=== PATIENT | male | born 1975 | race Two or more races ===

== ENCOUNTER 2017-01-14 23:22 | Inpatient (IN) | payer OTHER ==
[2017-01-15 00:33] LABS: CH 31.9; CHCM 34.6; HCT 44.5 % (39.0-53.0); HDW 2.26; MCH 31.1 pg (25.0-35.0); MCHC 33.6 g/dL (31.0-37.0); MCV 92.5 fL (80.0-100.0); RBC 4.81 m/uL (4.30-5.90); RDW 14.1 % (11.5-15.5); WBC 15.4 k/uL (3.8-10.6)
--- NOTE | 2017-01-15 00:34 | XR ---
EXAM: XR Chest, 2 Views CLINICAL HISTORY: Reason: Chest Pain TECHNIQUE: Frontal and lateral views of the chest. COMPARISON: No relevant prior studies available. FINDINGS: Lungs: Suggestion of mild patchy retrocardiac infiltrate. Pleural space: Unremarkable. No pneumothorax. Heart: Unremarkable. Mediastinum: Unremarkable. Bones/joints: No acute fracture. IMPRESSION: Suggestion of mild patchy retrocardiac infiltrate.
[2017-01-15 00:45] LABS: ALT 34 U/L (21-72); AST 18 U/L (17-59); Alkaline Phosphatase 70 U/L (38-126); Anion Gap 9 mmol/L; Blood Urea Nitrogen 18 mg/dL (9-20); Calcium 9.5 mg/dL (8.4-10.2); Carbon Dioxide 25 mmol/L (22-30); Chloride 104 mmol/L (98-107); Glucose 98 mg/dL (74-99); Non-African American GFR(MDRD) >60 (>60 ml/min/1.73 sqM); Potassium 4.5 mmol/L (3.5-5.1); Sodium 138 mmol/L (137-145); Total Bilirubin 0.2 mg/dL (0.2-1.3); Total Protein 7.5 g/dL (6.3-8.2)
[2017-01-15 00:56] LABS: Add Differential Manual Differential
[2017-01-15 00:58] LABS: Nucleated Red Blood Cells 0 /100 WBC (0-0); Total Cells Counted 100
[2017-01-15 00:59] LABS: Manual Review Performed
[2017-01-15 01:07] LABS: Creatine Kinase MB 1.1 ng/mL (0.0-2.4)
[2017-01-15 01:16] LABS: Troponin I 0.269 ng/mL (0.000-0.034)
--- NOTE | 2017-01-15 01:21 | ED ---
General Adult HPI - General Chief complaint: Chest Pain Stated complaint: chest pain Time Seen by Provider: 01/14/17 23:43 Source: patient Mode of arrival: wheelchair Limitations: no limitations - Related Data Home Medications Medication Instructions Recorded Confirmed No Known Home Medications [No 01/14/17 01/14/17 Known Home Medications] Allergies Allergy/AdvReac Type Severity Reaction Status Date / Time No Known Allergies Allergy Verified 01/14/17 23:28 Review of Systems ROS Statement: Those systems with pertinent positive or pertinent negative responses have been documented in the HPI. ROS Other: All systems not noted in ROS Statement are negative. Past Medical History Past Medical History: Sleep Apnea/CPAP/BIPAP History of Any Multi-Drug Resistant Organisms: None Reported Past Surgical History: No Surgical Hx Reported Past Psychological History: No Psychological Hx Reported Smoking Status: Current every day smoker Past Alcohol Use History: None Reported Past Drug Use History: Marijuana General Exam Limitations: no limitations Course Vital Signs 01/14/17 23:25 Temperature 98.8 F Pulse Rate 89 Respiratory 20 Rate Blood Pressure 162/98 O2 Sat by Pulse 97 Oximetry EKG Findings - EKG Comments: EKG Findings:: EKG was done and reviewed at 2335 showing normal sinus rhythm with left atrial enlargement. And left ventricular hypertrophy with prolonged QT. The lateral ischemic changes noted. No old EKG available to compare to. The patient's ventricular rate 85 AR was 190 QRS 14 QT [address] Moody Medical Decision Making - Medical Decision Making Medical decision making; patient's white count is 15 hemoglobin 15 hematocrit 46. Temperature sent neutrophils. D-dimer 0.37. Potassium 4.5 with a BUN of 18 creatinine 1.0 with a GFR greater than 60. Glucose 98. Chest x-ray was done AP and lateral views and reviewed by radiologist his impression is suggestion of mild patchy retrocardiac infiltrate. As read by Dr. keita ultrasound of the arm was done to rule out DVT was negative. Lab resulted cardiac enzymes; CK 81 troponin 0.269. just prior to these results coming back the daughter stated that he passed out i.e. had a syncopal episode which he did not mention. He stated that was when the pain was at its worst but after he stood up again after passing out the pain had gone away. The patient is pain-free. I discussed the case with Dr. redman, on-call water pollution control inspector. The patient has been started on heparin. patient will have serial EKGs as needed plus cardiac enzymes. Patient be admitted to Dr. Leal. - Lab Data Result diagrams: 01/15/17 00:25 01/15/17 00:25 Lab Results 01/15/17 01/15/17 01/15/17 Range/Units 00:25 00:25 00:25 WBC 15.4 H (3.8-10.6) k/uL RBC 4.81 (4.30-5.90) m/uL Hgb 15.0 (13.0-17.5) gm/dL Hct 44.5 (39.0-53.0) % MCV 92.5 (80.0-100.0) fL MCH 31.1 (25.0-35.0) pg MCHC 33.6 (31.0-37.0) g/dL RDW 14.1 (11.5-15.5) % Plt Count 255 (150-450) k/uL Neutrophils % (Manual) 66 % Lymphocytes % (Manual) 18 % Monocytes % (Manual) 14 % Eosinophils % (Manual) 2 % Neutrophils # (Manual) 10.16 H (1.3-7.7) k/uL Lymphocytes # (Manual) 2.77 (1.0-4.8) k/uL Monocytes # (Manual) 2.16 H (0-1.0) k/uL Eosinophils # (Manual) 0.31 (0-0.7) k/uL Nucleated RBCs 0 (0-0) /100 WBC Manual Slide Review Performed D-Dimer (<0.60) mg/L FEU Sodium 138 (137-145) mmol/L Potassium 4.5 (3.5-5.1) mmol/L Chloride 104 (98-107) mmol/L Carbon Dioxide 25 (22-30) mmol/L Anion Gap 9 mmol/L BUN 18 (9-20) mg/dL Creatinine 1.00 (0.66-1.25) mg/dL Est GFR (MDRD) Af Amer >60 (>60 ml/min/1.73 sqM) Est GFR (MDRD) Non-Af >60 (>60 ml/min/1.73 sqM) Glucose 98 (74-99) mg/dL Calcium 9.5 (8.4-10.2) mg/dL Magnesium 2.0 (1.6-2.3) mg/dL Total Bilirubin 0.2 (0.2-1.3) mg/dL AST 18 (17-59) U/L ALT 34 (21-72) U/L Alkaline Phosphatase 70 (38-126) U/L Total Creatine Kinase 85 (55-170) U/L Total Protein 7.5 (6.3-8.2) g/dL Albumin 4.4 (3.5-5.0) g/dL 01/15/17 Range/Units 00:25 WBC (3.8-10.6) k/uL RBC (4.30-5.90) m/uL Hgb (13.0-17.5) gm/dL Hct (39.0-53.0) % MCV (80.0-100.0) fL MCH (25.0-35.0) pg MCHC (31.0-37.0) g/dL RDW (11.5-15.5) % Plt Count (150-450) k/uL Neutrophils % (Manual) % Lymphocytes % (Manual) % Monocytes % (Manual) % Eosinophils % (Manual) % Neutrophils # (Manual) (1.3-7.7) k/uL Lymphocytes # (Manual) (1.0-4.8) k/uL Monocytes # (Manual) (0-1.0) k/uL Eosinophils # (Manual) (0-0.7) k/uL Nucleated RBCs (0-0) /100 WBC Manual Slide Review D-Dimer 0.37 (<0.60) mg/L FEU Sodium (137-145) mmol/L Potassium (3.5-5.1) mmol/L Chloride (98-107) mmol/L Carbon Dioxide (22-30) mmol/L Anion Gap mmol/L BUN (9-20) mg/dL Creatinine (0.66-1.25) mg/dL Est GFR (MDRD) Af Amer (>60 ml/min/1.73 sqM) Est GFR (MDRD) Non-Af (>60 ml/min/1.73 sqM) Glucose (74-99) mg/dL Calcium (8.4-10.2) mg/dL Magnesium (1.6-2.3) mg/dL Total Bilirubin (0.2-1.3) mg/dL AST (17-59) U/L ALT (21-72) U/L Alkaline Phosphatase (38-126) U/L Total Creatine Kinase (55-170) U/L Total Protein (6.3-8.2) g/dL Albumin (3.5-5.0) g/dL Disposition Clinical Impression: Non-ST elevation VT (NSTEMI) Disposition: ADMITTED IP TO THIS HOSP Condition: Serious Referrals: Yaritza Andrade MD [Primary Care Provider] - 1-2 days
[2017-01-15] MEDS ORDERED: HEPARIN SODIUM,PORCINE 5,000 UNIT/ML 1 ML VIAL IV STA (01:23)
[2017-01-15] MEDS ORDERED: ASPIRIN 325 MG TAB PO STA ×2 (01:24→08:01)
[2017-01-15] MEDS ORDERED: HEPARIN SODIUM,PORCINE/D5W PMX 25,000 UNIT in DEXTROSE/WATER 1 500ML.BAG IV SCH (01:30)
--- NOTE | 2017-01-15 01:32 | US ---
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 COMPARISON: No relevant prior studies available. FINDINGS: Deep veins: Unremarkable. No DVT in the internal jugular, subclavian, axillary, or brachial veins. The veins are compressible with normal color flow and augmentation. Superficial veins: Unremarkable. No thrombus in the visualized basilic and cephalic veins. IMPRESSION: No DVT demonstrated.
[2017-01-15] MEDS ORDERED: LORazepam 2 MG/ML SYRINGE IV PRN (01:36)
[2017-01-15] MEDS ORDERED: MORPHINE SULFATE 4 MG/ML SYRINGE IV PRN (01:36)
[2017-01-15] MEDS ORDERED: NALOXONE 0.4 MG/ML 1 ML VIAL IV PRN (01:36)
[2017-01-15] MEDS ORDERED: ATORVASTATIN 80 MG TAB PO STA ×2 (01:43→08:01)
[2017-01-15] MEDS: NITROGLYCERIN OINT 1 INCH/GM PACKET TOPICAL SCH ×4 (01:50→19:07)
[2017-01-15] MEDS: SODIUM CHLORIDE 0.9% 1,000 ML IV SCH ×2 (01:52→14:10)
[2017-01-15 02:39] VITALS: BMI 38.4
[2017-01-15] MEDS ORDERED: NITROGLYCERIN SL TABS 0.4 MG TAB SUBLINGUAL PRN ×2 (08:01→10:49)
[2017-01-15] MEDS ORDERED: SODIUM CHLORIDE 0.9% 1,000 ML in EMPTY BAG 1 BAG IV ONE (08:01)
[2017-01-15] MEDS ORDERED: ALPRAZolam 0.25 MG TAB PO PRN (08:01)
[2017-01-15] MEDS ORDERED: ALPRAZolam 0.5 MG TAB PO PRN (08:01)
[2017-01-15 08:08] LABS: Creatine Kinase MB 1.7 ng/mL (0.0-2.4)
--- NOTE | 2017-01-15 08:09 | P.CRDCN ---
History of Present Illness Consult date: 01/15/17 Consult reason: chest pain History of present illness: 41-year-old gentleman with no significant past medical history comes to Hospital complaining of chest pain. He describes it as a precordial chest pressure moderate to severe intensity that radiated to his arms. It came on at rest and has subsided after he came to hospital. He is being treated as unstable angina EKG shows T-wave inversions in the anterolateral leads at the time of my evaluation his pain-free but is unhappy that he couldn't sleep tonight. Troponin is mildly elevated suggestive of non-ST segment elevation ND. Patient is a smoker. There is no history of hypertension diabetes and we don't have a cholesterol. Given his clinical presentation EKG findings and the abnormal blood tests I advised her to undergo advised him to undergo cardiac catheterization for further evaluation he has been explained of risk benefits and alternatives understood and accepted Review of Systems Constitutional: Denies chills. Denies fever. Eyes: Denies blurred vision. Denies pain. Ears, nose, mouth and throat: Denies headache. Denies sore throat. Cardiovascular:has chest pain. Denies shortness of breath. Respiratory: Denies cough. Gastrointestinal: Denies abdominal pain. Denies diarrhea. Denies nausea. Denies vomiting. Musculoskeletal: Denies myalgias. Integumentary: Denies pruritus. Denies rash. Neurological: Denies numbness. Denies weakness. Psychiatric: Denies anxiety. Denies depression. Endocrine: Denies fatigue. Denies weight change. Genitourinary: Denies burning, hematuria, frequency of urination. Hematological: No anemia or excess bleeding. Past Medical History Past Medical History: Sleep Apnea/CPAP/BIPAP History of Any Multi-Drug Resistant Organisms: None Reported Past Surgical History: No Surgical Hx Reported Past Psychological History: No Psychological Hx Reported Smoking Status: Current every day smoker Past Alcohol Use History: None Reported Past Drug Use History: Marijuana Medications and Allergies Home Medications Medication Instructions Recorded Confirmed Type No Known Home Medications [No 01/14/17 01/15/17 History Known Home Medications] Allergies Allergy/AdvReac Type Severity Reaction Status Date / Time No Known Allergies Allergy Verified 01/15/17 07:49 Physical Exam Vitals: Vital Signs Temp Pulse Pulse Resp BP BP Pulse Ox 01/15/17 03:59 97.7 F 71 16 154/87 95 01/15/17 01:59 97.7 F 77 16 139/89 97 01/15/17 01:56 98.4 F 77 18 161/87 96 01/15/17 01:36 97 01/14/17 23:25 98.8 F 89 20 162/98 97 Intake and Output 01/14/17 01/15/17 01/15/17 22:59 06:59 14:59 Intake Total 240 Output Total 450 Balance -210 Intake: IV 240 Sodium Chloride 0.9% 1, 240 000 ml @ 80 mls/hr IV . [id number] [facility] Rx#:[id number] Output: Urine 450 Other: Voiding Method Urinal Weight 117.934 kg General: The patient is awake and alert, in no distress, and does not appear acutely ill. Skin: Skin is warm and dry and no rashes or lesions are noted. Eye: Pupils are equal, round and reactive to light, extra-ocular movements are intact; there is normal conjunctiva bilaterally. Ears, nose, mouth and throat: There are moist mucous membranes and no oral lesions. Neck: The neck is supple, there is no tenderness or JVD. Cardiovascular: [ There is a regular rate and rhythm.][ No murmur, rub or gallop is appreciated.] Respiratory: Lungs are clear to auscultation, respirations are non-labored, breath sounds are equal. Gastrointestinal: Soft, non-distended, non-tender abdomen without masses or organomegaly noted. There is no rebound or guarding present. Bowel sounds are unremarkable. Back: There is no tenderness to palpation in the midline. There is no obvious deformity. Musculoskeletal: Normal ROM, no tenderness, There is no pedal edema. There is no calf tenderness or swelling. Extremities:[ No edema.] Vascular: [Femoral pulse is normal.][ Posterior tibial pulses are normal .][ Dorsalis pedis is palpable.] Neurological: CN II-XII intact. There are no obvious motor or sensory deficits. Speech is normal. Psychiatric: Cooperative, appropriate mood & affect, normal judgment. Results 01/15/17 00:25 01/15/17 00:25 Cardiac Enzymes 01/15/17 01/15/17 Range/Units 00:25 00:25 AST 18 (17-59) U/L CK-MB (CK-2) 1.1 (0.0-2.4) ng/mL Troponin I 0.269 H* (0.000-0.034) ng/mL Coagulation 01/15/17 Range/Units 06:52 APTT 30.1 H (22.0-30.0) sec CBC 01/15/17 Range/Units 00:25 WBC 15.4 H (3.8-10.6) k/uL RBC 4.81 (4.30-5.90) m/uL Hgb 15.0 (13.0-17.5) gm/dL Hct 44.5 (39.0-53.0) % Plt Count 255 (150-450) k/uL Comprehensive Metabolic Panel 01/15/17 Range/Units 00:25 Sodium 138 (137-145) mmol/L Potassium 4.5 (3.5-5.1) mmol/L Chloride 104 (98-107) mmol/L Carbon Dioxide 25 (22-30) mmol/L BUN 18 (9-20) mg/dL Creatinine 1.00 (0.66-1.25) mg/dL Glucose 98 (74-99) mg/dL Calcium 9.5 (8.4-10.2) mg/dL AST 18 (17-59) U/L ALT 34 (21-72) U/L Alkaline Phosphatase 70 (38-126) U/L Total Protein 7.5 (6.3-8.2) g/dL Albumin 4.4 (3.5-5.0) g/dL Current Medications Generic Name Dose Route Start Last Admin Trade Name Freq PRN Reason Stop Dose Admin Alprazolam 0.25 mg 01/15/17 08:01 Xanax PO Q6HR PRN Mild Anxiety Alprazolam 0.5 mg 01/15/17 08:01 Xanax PO Q6HR PRN Moderate Anxiety Aspirin 325 mg 01/15/17 09:00 Aspirin PO DAILY MARGIE Sodium Chloride 1,000 mls @ 80 mls/hr 01/15/17 01:45 01/15/17 01:52 Saline 0.9% IV 80 mls/hr .[id number] MARGIE Administration Lorazepam 0.5 mg 01/15/17 01:36 Ativan IV Q6HR PRN Anxiety Morphine Sulfate 4 mg 01/15/17 01:36 Morphine Sulfate (Inj) IV Q4HR PRN Severe Pain Naloxone HCl 0.2 mg 01/15/17 01:36 Narcan IV Q2M PRN Opioid Reversal Nitroglycerin 1 inch 01/15/17 01:45 01/15/17 06:40 Nitro-Bid Oint TOPICAL 1 inch Q6H MARGIE Administration Nitroglycerin 0.4 mg 01/15/17 08:01 Nitrostat SUBLINGUAL Q5M PRN Chest Pain Pantoprazole Sodium 40 mg 01/15/17 09:00 Protonix IV DAILY MARGIE Intake and Output 01/14/17 01/15/17 01/15/17 22:59 06:59 14:59 Intake Total 240 Output Total 450 Balance -210 Intake: IV 240 Sodium Chloride 0.9% 1, 240 000 ml @ 80 mls/hr IV . [id number] MARGIE Rx#:[id number] Output: Urine 450 Other: Voiding Method Urinal Weight 117.934 kg 01/15/17 00:25 01/15/17 00:25 EKG Interpretations (text) Normal sinus rhythm with anterolateral ST-T wave changes Assessment and Plan Plan: Acute non-ST segment elevation ND Patient will undergo cardiac catheterization today will review the echo results once they're available I will check lipid profile and treat them accordingly I advised him to quit smoking
[2017-01-15 08:13] LABS: Troponin I 0.487 ng/mL (0.000-0.034)
[2017-01-15] MEDS: ASPIRIN 325 MG TAB PO SCH ×2 (08:24→08:27)
[2017-01-15 09:00] LABS: Cholesterol 157 mg/dL (<200); HDL Cholesterol 36 mg/dL (40-60)
[2017-01-15] MEDS ORDERED: PANTOPRAZOLE 40 MG/10 ML VIAL IV SCH (09:00)
[2017-01-15] MEDS ORDERED: IV FLUID CONTINUATION 1,000 ML IV ONE (09:44)
[2017-01-15] MEDS ORDERED: MIDAZOLAM 2 MG/2 ML VIAL IV ONE (10:01)
[2017-01-15] MEDS ORDERED: fentaNYL (PF) 50 MCG/ML 2 ML AMP IV ONE (10:02)
[2017-01-15] MEDS ORDERED: BIVALIRUDIN BOLUS 250 MG/50 ML IV ONE (10:16)
[2017-01-15] MEDS ORDERED: BIVALIRUDIN 250 MG in SODIUM CHLORIDE 0.9% 50 ML IV ONE (10:17)
[2017-01-15] MEDS: NITROGLYCERIN 1000MCG/10ML SYRINGE INTRACORON ONE ×2 (10:30→10:34)
[2017-01-15] MEDS ORDERED: IOHEXOL 350 MG/ML 125ML BOTTLE INJ ONE (10:41)
[2017-01-15] MEDS ORDERED: TICAGRELOR 90 MG TAB PO ONE (10:41)
[2017-01-15] MEDS ORDERED: LIDOCAINE 2% INJ 20 MG/ML SQ ONE (10:44)
[2017-01-15] MEDS ORDERED: ZOLPIDEM 5 MG TAB PO PRN (10:49)
[2017-01-15] MEDS ORDERED: ATROPINE SULFATE 0.1 MG/ML 10ML SYRINGE IV PRN (10:49)
[2017-01-15] MEDS ORDERED: RX INFO: IV CONTRAST WAS GIVEN 1 EACH MISC MISCELLANE PRN (10:49)
[2017-01-15] MEDS ORDERED: MAG HYDROX/AL HYDROX/SIMETH 30 ML CUP PO PRN (10:49)
[2017-01-15] MEDS ORDERED: SODIUM CHLORIDE 0.9% 1,000 ML IV SCH (11:00)
--- NOTE | 2017-01-15 11:25 | ECHOF ---
Referral Reason:non-STEMI MEASUREMENTS -------- HEIGHT: 175.3 cm WEIGHT: 117.5 kg BP: 154/87 IVSd: 1.3 cm (0.6 - 1.1) LVIDd: 5.3 cm (3.9 - 5.3) LVPWd: 1.2 cm (0.6 - 1.1) IVSs: 1.6 cm LVIDs: 4.0 cm LVPWs: 1.7 cm LA Diam: 3.6 cm (2.7 - 3.8) Ao Diam: 2.9 cm (2.0 - 3.7) AV Cusp: 2.0 cm (1.5 - 2.6) LA Diam: 4.4 cm (2.7 - 3.8) MV EXCURSION: 20.304 mm (> 18.000) MV EF SLOPE: 83 mm/s (70 - 150) EPSS: 1.2 cm MV E Karsten: 0.65 m/s MV DecT: 271 ms MV A Karsten: 0.95 m/s MV E/A Ratio: 0.69 RAP: 5.00 mmHg RVSP: 15.50 mmHg FINDINGS -------- Sinus rhythm. This was a technically adequate study. The left ventricular size is normal. There is mild concentric left ventricular hypertrophy. Overall left ventricular systolic function is low-normal with, an EF between 50 - 55 %. The right ventricle is normal in size. The left atrial size is normal. The right atrial size is normal. The aortic valve is trileaflet, and appears structurally normal. No aortic stenosis or regurgitation. Mild mitral regurgitation is present. Mild tricuspid regurgitation present. There is no evidence of pulmonary hypertension. The right ventricular systolic pressure, as measured by Doppler, is 15.50mmHg. There is no pulmonic regurgitation present. The aortic root size is normal. There is no pericardial effusion. CONCLUSIONS -------- 1. The left ventricular size is normal. 2. The aortic root size is normal. 3. There is no pericardial effusion. 4. There is mild concentric left ventricular hypertrophy. 5. Overall left ventricular systolic function is low-normal with, an EF between 50 - 55 %. 6. The aortic valve is trileaflet, and appears structurally normal. No aortic stenosis or regurgitation. 7. Mild mitral regurgitation is present. 8. Mild tricuspid regurgitation present. 9. There is no evidence of pulmonary hypertension. 10. The right ventricular systolic pressure, as measured by Doppler, is 15.50mmHg. 11. There is no pulmonic regurgitation present. CORSAGE MAKER: Maritza Neri RDCS
[2017-01-15 13:40] LABS: Creatine Kinase MB 1.4 ng/mL (0.0-2.4)
[2017-01-15 13:43] LABS: Troponin I 0.513 ng/mL (0.000-0.034)
--- NOTE | 2017-01-15 14:45 | P.HPIM ---
History of Present Illness 41-year-old that came in with compensative chest pain the precordial area radiating to the left arm patient the had mildly elevated troponins admitted for non-ST elevation microinfarction patient also had T-wave inversion in the anterolateral leads patient subsequently underwent cardiac catheterization found to have significant stenosis in the left anterior descending patient underwent the stent placement to LAD. Patient is a smoker. Quit smoking from now. Patient is clinically doing well without any chest pain when I evaluated patient denied any shortness of breath denied any lightheadedness patient was diaphoretic with chest pain yesterday. Review of Systems REVIEW OF SYSTEMS: CONSTITUTIONAL: No fever, no malaise, no fatigue. HEENT: No recent visual problems or hearing problems. Denied any sore throat. CARDIOVASCULAR: No orthopnea, PND, no palpitations, no syncope. PULMONARY: No shortness of breath, no cough, no hemoptysis. GASTROINTESTINAL: No diarrhea, no nausea, no vomiting, no abdominal pain. Normoactive bowel sounds. NEUROLOGICAL: No headaches, no weakness, no numbness. HEMATOLOGICAL: Denies any bleeding or petechiae. GENITOURINARY: Denies any burning micturition, frequency, or urgency. MUSCULOSKELETAL/RHEUMATOLOGICAL: Denies any joint pain, swelling, or any muscle pain. ENDOCRINE: Denies any polyuria or polydipsia. The rest of the 14-point review of systems is negative. Past Medical History Past Medical History: Sleep Apnea/CPAP/BIPAP History of Any Multi-Drug Resistant Organisms: None Reported Past Surgical History: No Surgical Hx Reported Past Psychological History: No Psychological Hx Reported Smoking Status: Current every day smoker Past Alcohol Use History: None Reported Past Drug Use History: Marijuana Medications and Allergies Home Medications Medication Instructions Recorded Confirmed Type No Known Home Medications [No 01/14/17 01/15/17 History Known Home Medications] Allergies Allergy/AdvReac Type Severity Reaction Status Date / Time No Known Allergies Allergy Verified 01/15/17 07:49 Physical Exam Vitals: Vital Signs Temp Pulse Pulse Resp BP BP Pulse Ox 01/15/17 14:27 70 18 145/89 97 01/15/17 13:34 65 18 151/94 98 01/15/17 12:34 71 18 143/91 97 01/15/17 12:04 67 18 158/99 98 01/15/17 11:34 78 18 146/96 97 01/15/17 11:19 64 18 150/99 98 01/15/17 11:04 96.4 F L 74 18 144/96 97 01/15/17 08:00 97.3 F L 18 169/88 94 L 01/15/17 03:59 97.7 F 71 16 154/87 95 01/15/17 01:59 97.7 F 77 16 139/89 97 01/15/17 01:56 98.4 F 77 18 161/87 96 01/15/17 01:36 97 01/14/17 23:25 98.8 F 89 20 162/98 97 Intake and Output 01/14/17 01/15/17 01/15/17 22:59 06:59 14:59 Intake Total 240 1045 Output Total 450 350 Balance -210 695 Intake: IV 240 805 Sodium Chloride 0.9% 1, 240 540 000 ml @ 80 mls/hr IV . [id number] [facility] Rx#:[id number] Oral 240 Output: Urine 450 350 Other: Voiding Method Urinal Weight 117.934 kg PHYSICAL EXAMINATION: GENERAL: The patient is alert and oriented x3, not in any acute distress. Well developed, well nourished. HEENT: Pupils are round and equally reacting to light. EOMI. No scleral icterus. No conjunctival pallor. Normocephalic, atraumatic. No pharyngeal erythema. No thyromegaly. CARDIOVASCULAR: S1 and S2 present. No murmurs, rubs, or gallops. PULMONARY: Chest is clear to auscultation, no wheezing or crackles. ABDOMEN: Soft, nontender, nondistended, normoactive bowel sounds. No palpable organomegaly. MUSCULOSKELETAL: No joint swelling or deformity. EXTREMITIES: No cyanosis, clubbing, or pedal edema. NEUROLOGICAL: Gross neurological examination did not reveal any focal deficits. SKIN: No rashes. Results CBC & Chem 7: 01/15/17 00:25 01/15/17 00:25 Labs: Abnormal Lab Results - Last 24 Hours (Table) 01/15/17 01/15/17 01/15/17 Range/Units 00:25 00:25 06:52 WBC 15.4 H (3.8-10.6) k/uL Neutrophils # (Manual) 10.16 H (1.3-7.7) k/uL Monocytes # (Manual) 2.16 H (0-1.0) k/uL APTT (22.0-30.0) sec Troponin I 0.269 H* 0.487 H* (0.000-0.034) ng/mL LDL Cholesterol, Calc (0-99) mg/dL HDL Cholesterol (40-60) mg/dL 01/15/17 01/15/17 01/15/17 Range/Units 06:52 06:52 12:25 WBC (3.8-10.6) k/uL Neutrophils # (Manual) (1.3-7.7) k/uL Monocytes # (Manual) (0-1.0) k/uL APTT 30.1 H (22.0-30.0) sec Troponin I 0.513 H* (0.000-0.034) ng/mL LDL Cholesterol, Calc 100 H (0-99) mg/dL HDL Cholesterol 36 L (40-60) mg/dL Thrombosis Risk Factor Assmnt - Choose All That Apply Each Factor Represents 1 point: Age 41-60 years, Obesity (BMI >25) Other Risk Factors: No Thrombosis Risk Factor Assessment Total Risk Factor Score: 2 Thrombosis Risk Factor Assessment Level: Low Risk Assessment and Plan Plan: #1 acute non-ST elevation microinfarction: Involving the left anterior descending and patient is status post cardiac catheterization and stenting and patient is on dual antiplatelet therapy, statin and lisinopril at this time. #2 hypertension external #3 hyperlipidemia #4 obesity: Counseling was provided #5 nicotine abuse: Counseling was provided
--- NOTE | 2017-01-15 19:10 | CC ---
CARDIAC CATHETERIZATION REPORT INDICATION: Eay-ME-mzweyrd-elevation IA. PROCEDURE NOTE: After obtaining informed consent, left heart catheterization and coronary angiogram were performed via the right femoral artery using standard Suzanna catheters. The patient tolerated the procedure well without any obvious immediate complication. Patient received moderate conscious sedation. Total sedation time was 15 minutes. FINDINGS: 1. Hemodynamics. Left ventricular end-diastolic pressure is 18 mmHg. There is no significant gradient across the aortic valve. 2. Left ventriculogram. Left ventriculogram was not performed. 3. Angiographic data. a.Left main coronary artery. Left main coronary artery is a normal-sized vessel and is free of stenosis. It divides into left anterior descending coronary artery and circumflex coronary artery. Mid LAD shows a focal 95% stenosis. There are mild atherosclerotic changes within the circumflex coronary artery. b.Right coronary artery is a large dominant vessel. It shows mild cholesterol plaque. CONCLUSION: Stenosis of 95% involving mid LAD. PLAN: Patient will undergo angioplasty, stent placement of LAD. MMODL / IJN: [id number] /
--- NOTE | 2017-01-15 19:22 | PTCA ---
PERCUTANEOUSTRANS CORORONARY ANGIOGRAPHY DATE OF PROCEDURE: 01/15/2017 PERFORMING PHYSICIAN: Mack Man M.D., hog sawyer. PROCEDURE PERFORMED: Successful stenting of the mid left anterior descending artery using 3.0 x 15 mm Xience NOE with good angiographic results. INDICATION: This is a pleasant 41-year-old gentleman who presented to the hospital with chest discomfort and was diagnosed with acute non-STEMI. He was seen and evaluated by Dr. Ortiz, who performed a heart catheterization, and the patient was found to have critical disease involving the LAD. APPROACH: Right common femoral artery. COMPLICATIONS: None. LEVEL OF SEDATION: Moderate with a sedation length of 25 minutes. PROCEDURE DESCRIPTION: After diagnostic heart catheterization was performed by Dr. Ortiz and after reviewing the angiogram, we decided to proceed with intervention on the LAD. Anticoagulation was initiated using Angiomax. Subsequently I took JL4 guide and the left main was engaged. A Whisper wire was used to wire the LAD. Subsequently I ballooned the LAD using a 3.0 x 12 mm balloon, and subsequently I deployed a 3.0 x 15 mm Xience NOE where the stent was positioned under fluoroscopic guidance and deployed under 14 atmospheres for 20 seconds. The following angiogram showed good angiographic results. The procedure was completed without any complication. The groin was closed using the Perclose device. POST-PROCEDURE MANAGEMENT: 1. Dual anti-platelet therapy. 2. Risk factor modifications. 3. Follow up with the patient. RACHAEL / JAYNA: [id number] /
[2017-01-15] MEDS: TICAGRELOR 90 MG TAB PO SCH (20:18)
[2017-01-15] MEDS: METOPROLOL TARTRATE 25 MG TAB PO SCH (20:18)
[2017-01-15] MEDS ORDERED: ATORVASTATIN 80 MG TAB PO SCH (21:00)
[2017-01-16] MEDS: NITROGLYCERIN OINT 1 INCH/GM PACKET TOPICAL SCH ×3 (02:47→13:00)
[2017-01-16 06:38] LABS: Non-African American GFR(MDRD) >60 (>60 ml/min/1.73 sqM)
[2017-01-16] MEDS ORDERED: PANTOPRAZOLE 40 MG TABLET PO SCH (07:30)
[2017-01-16] MEDS: METOPROLOL TARTRATE 25 MG TAB PO SCH (08:31)
[2017-01-16] MEDS: TICAGRELOR 90 MG TAB PO SCH (08:32)
[2017-01-16 08:34] VITALS: PULSE 82
[2017-01-16] MEDS ORDERED: ASPIRIN 81 MG PO SCH (09:00)
[2017-01-16] MEDS ORDERED: LISINOPRIL 10 MG TAB PO SCH (09:00)
--- NOTE | 2017-01-16 11:42 | P.PN ---
Subjective Principal diagnosis: Non-STEMI This is a 41-year-old gentleman who presented to the hospital with a non-ST elevation myocardial infarction. He was taken to the cardiac catheterization lab yesterday by Dr. Ortiz and subsequently underwent angioplasty with stenting of the LAD by Dr. Hernadez. Patient was seen and examined this morning, denies any chest pain or difficulty in breathing. EKG from this morning shows normal sinus rhythm with no changes from post-PCI. Echocardiogram with Doppler study was performed which revealed an ejection fraction of 50-55%. Blood pressure 120/80 with a heart rate in the 80s. Objective - Vital Signs Vital signs: Vital Signs Temp 97.5 F L 01/16/17 08:33 Pulse 82 01/16/17 08:33 Resp 14 01/16/17 08:33 BP 150/97 01/16/17 08:33 Pulse Ox 97 01/16/17 08:33 Intake & Output 01/15/17 01/16/17 01/16/17 18:59 06:59 18:59 Intake Total 1285 200 Output Total 350 Balance 935 200 Weight 115.6 kg Intake: IV 805 Sodium Chloride 0.9% 1, 540 000 ml @ 80 mls/hr IV . [id number] MARGIE Rx#:[id number] Oral 480 200 Output: Urine 350 Other: Voiding Method Urinal Urinal # Voids 2 - Exam PHYSICAL EXAMINATION: HEENT: Head is atraumatic, normocephalic. Pupils equal, round. Neck is supple. There is no elevated jugular venous pressure. HEART EXAMINATION: Heart S1, S2 normal. No murmur or gallop heard. CHEST EXAMINATION: Lungs are clear to auscultation and precussion. No chest wall tenderness is noted on palpation or with deep breathing. ABDOMEN: Soft, nontender. Bowel sounds are heard. No organomegaly noted. Right groin soft, no evidence of any hematoma. EXTREMITIES: 2+ peripheral pulses with no evidence of peripheral edema and no calf tenderness noted. NEUROLOGIC patient is awake, alert and oriented -3. . - Labs CBC & Chem 7: 01/15/17 00:25 01/16/17 05:38 Labs: Abnormal Lab Results - Last 24 Hours (Table) 01/15/17 Range/Units 12:25 Troponin I 0.513 H* (0.000-0.034) ng/mL Assessment and Plan (1) Hyperlipemia Status: Acute (2) Marijuana smoker Status: Acute (3) Nicotine dependence Status: Acute (4) Non-ST elevation [place] (NSTEMI) Status: Acute Plan: From cardiology's perspective, patient may be able to be discharged home today. We will make him a follow-up appointment with Dr. Ortiz post discharge. Patient will be discharged home on aspirin 81 mg daily, Lipitor 80 mg daily, lisinopril 10 mg daily, metoprolol tartrate 25 mg one tablet by mouth twice a day, we will discontinue the Nitropaste. Brilinta 90 mg one tablet by mouth twice a day and sublingual nitroglycerin as needed for chest pain. Prescriptions for the above medications have been provided. DNP note has been reviewed, I agree with a documented findings and plan of care. Patient was seen and examined.
--- NOTE | 2017-01-16 12:05 | P.PN ---
Progress Note - Text This is an addendum to the progress note dictated earlier by cardiology. Patient does not have insurance coverage for Brilinta therefore he will go home with a free month supply. Once that is completed patient will take a one-time dose of 600 mg of Plavix, then start on Plavix 75 mg daily. He's been educated regarding this and prescriptions provided. DNP note has been reviewed, I agree with a documented findings and plan of care. Patient was seen and examined.
[2017-01-16 12:20] VITALS: BP 132/77; RESP 16; TEMP 97
--- NOTE | 2017-01-16 15:50 | P.DS ---
Providers Date of admission: 01/15/17 01:41 Attending physician: Marc Leal Consults: 01/15/17 01:36 Consult Physician Stat Consulting Provider: Zak Warren Consult Reason/Comments: non-STEMI Do you want consulting provider notified?: Already Contacted 01/15/17 10:49 Consult Physician Routine Consulting Provider: [facility] Consult Reason/Comments: Post Interventional patient Do you want consulting provider notified?: Already Contacted Primary care physician: Lupe Vigil [facility] Course: 41-year-old that came in with compensative chest pain the precordial area radiating to the left arm patient the had mildly elevated troponins admitted for non-ST elevation microinfarction patient also had T-wave inversion in the anterolateral leads patient subsequently underwent cardiac catheterization found to have significant stenosis in the left anterior descending patient underwent the stent placement to LAD. Patient is a smoker. Quit smoking from now. Patient is clinically doing well without any chest pain when I evaluated patient denied any shortness of breath denied any lightheadedness patient was diaphoretic with chest pain yesterday. 01/16/2017 next Patient is chest pain-free is clinically doing well will be discharged today to stable medical condition to home PHYSICAL EXAMINATION: GENERAL: The patient is alert and oriented x3, not in any acute distress. Well developed, well nourished. HEENT: Pupils are round and equally reacting to light. EOMI. No scleral icterus. No conjunctival pallor. Normocephalic, atraumatic. No pharyngeal erythema. No thyromegaly. CARDIOVASCULAR: S1 and S2 present. No murmurs, rubs, or gallops. PULMONARY: Chest is clear to auscultation, no wheezing or crackles. ABDOMEN: Soft, nontender, nondistended, normoactive bowel sounds. No palpable organomegaly. MUSCULOSKELETAL: No joint swelling or deformity. EXTREMITIES: No cyanosis, clubbing, or pedal edema. NEUROLOGICAL: Gross neurological examination did not reveal any focal deficits. SKIN: No rashes. #1 acute non-ST elevation myocardial infarction: Involving the left anterior descending and patient is status post cardiac catheterization and stenting and patient is on dual antiplatelet therapy, statin and lisinopril at this time. #2 hypertension external #3 hyperlipidemia #4 obesity: Counseling was provided #5 nicotine abuse: Counseling was provided Patient Condition at Discharge: Serious Plan - Discharge Summary New Discharge Prescriptions: New Aspirin 81 mg PO DAILY #30 Atorvastatin [Lipitor] 80 mg PO HS #30 tab Lisinopril [Zestril] 10 mg PO DAILY #30 tab Metoprolol Tartrate [Lopressor] 25 mg PO BID #60 tab Nitroglycerin Sl Tabs [Nitrostat] 0.4 mg SUBLINGUAL Q5M PRN #25 tab PRN Reason: Chest Pain Pantoprazole [Protonix] 40 mg PO AC-BRKFST #30 tab Ticagrelor [Brilinta] 90 mg PO BID #60 tab Discharge Medication List Aspirin 81 mg PO DAILY #30 01/16/17 [Rx] Atorvastatin [Lipitor] 80 mg PO HS #30 tab 01/16/17 [Rx] Lisinopril [Zestril] 10 mg PO DAILY #30 tab 01/16/17 [Rx] Metoprolol Tartrate [Lopressor] 25 mg PO BID #60 tab 01/16/17 [Rx] Nitroglycerin Sl Tabs [Nitrostat] 0.4 mg SUBLINGUAL Q5M PRN #25 tab 01/16/17 [Rx ] Pantoprazole [Protonix] 40 mg PO AC-BRKFST #30 tab 01/16/17 [Rx] Ticagrelor [Brilinta] 90 mg PO BID #60 tab 01/16/17 [Rx] Follow up Appointment(s)/Referral(s): Yaritza Andrade MD [Primary Care Provider] - 1-2 days Jr Ortiz MD [STAFF PHYSICIAN] - 1 Week (call the office for appointment on Wednesday) Patient Instructions/Handouts: *[facility] - After Heart Catheterization - Weed Cutter Instructions, How to Stop Smoking (DC), Cigarette Smoking and Your Health (GEN) Discharge Disposition: HOME SELF-CARE
== END 2017-01-16 14:26 | disposition home or self-care (01) | DRG 247 ==
LOC: EC 23:22 → 6SEL 01-15 01:41
PROVIDERS: ADMIT Internal Medicine; ATTEND Internal Medicine
PROC: B2151ZZ Fluoroscopy of Left Heart using Low Osmolar Contrast (ICD-10-PCS; 2017-01-15)
PROC: B2111ZZ Fluoroscopy of Multiple Coronary Arteries using Low Osmolar Contrast (ICD-10-PCS; 2017-01-15)
PROC: 027034Z Dilation of Coronary Artery, One Artery with Drug-eluting Intraluminal Device, Percutaneous Approach (ICD-10-PCS; principal; 2017-01-15 09:44)
PROC: 4A023N7 Measurement of Cardiac Sampling and Pressure, Left Heart, Percutaneous Approach (ICD-10-PCS; 2017-01-15 09:44)
DX: I21.4 Non-ST elevation (NSTEMI) myocardial infarction (principal); I11.9 Hypertensive heart disease without heart failure; R94.31 Abnormal electrocardiogram [ECG] [EKG]; I25.110 Atherosclerotic heart disease of native coronary artery with unstable angina pectoris; E78.5 Hyperlipidemia, unspecified; E66.9 Obesity, unspecified; G47.30 Sleep apnea, unspecified; F12.90 Cannabis use, unspecified, uncomplicated; F17.210 Nicotine dependence, cigarettes, uncomplicated; Z71.6 Tobacco abuse counseling; Z71.3 Dietary counseling and surveillance; Z86.79 Personal history of other diseases of the circulatory system
CPT/HCPCS: 36415; 71020; 80053; 80061; 82550; 82553; 82565; 83735; 84484; 85025; 85379; 85730; 93005; 93306; 93458; 96374; 99285

== ENCOUNTER 2018-02-08 22:51 | Emergency (ER) | payer OTHER ==
[2018-02-08] MEDS ORDERED: ASPIRIN 81 MG PO STA (23:15)
[2018-02-09 00:01] LABS: Basophils # (A) 0.1 k/uL (0-0.2); Basophils % (A) 1 %; Eosinophils # (A) 0.5 k/uL (0-0.7); Eosinophils % (A) 5 %; HCT 38.3 % (39.0-53.0); Lymphocytes # (A) 3.1 k/uL (1.0-4.8); Lymphocytes % (A) 30 %; MCH 31.5 pg (25.0-35.0); MCHC 33.8 g/dL (31.0-37.0); MCV 93.3 fL (80.0-100.0); Mean Platelet Volume 6.9; Monocytes # (A) 0.7 k/uL (0-1.0); Monocytes % (A) 7 %; Neutrophils # (A) 5.4 k/uL (1.3-7.7); Neutrophils % (A) 53 %; Platelet Count 255 k/uL (150-450); RBC 4.11 m/uL (4.30-5.90); RDW 12.9 % (11.5-15.5); WBC 10.3 k/uL (3.8-10.6)
--- NOTE | 2018-02-09 00:01 | XR ---
EXAMINATION TYPE: XR chest 2V DATE OF EXAM: 02/08/2018 COMPARISON: 01/15/2017 HISTORY: Chest pain TECHNIQUE: Frontal and lateral views of the chest are obtained. FINDINGS: Heart and mediastinum are normal. Lungs are clear. Diaphragm is normal. Bony thorax appear s normal. IMPRESSION: Normal chest. No change.
[2018-02-09 00:09] LABS: Partial Thromboplastin Time 24.1 sec (22.0-30.0); Prothrombin Time 9.5 sec (9.0-12.0)
[2018-02-09 00:11] LABS: ALT 25 U/L (21-72); AST 16 U/L (17-59); Albumin 3.9 g/dL (3.5-5.0); Alkaline Phosphatase 54 U/L (38-126); Anion Gap 7 mmol/L; Blood Urea Nitrogen 11 mg/dL (9-20); Carbon Dioxide 27 mmol/L (22-30); Chloride 104 mmol/L (98-107); Glucose 95 mg/dL (74-99); Potassium 3.9 mmol/L (3.5-5.1); Sodium 138 mmol/L (137-145); Total Bilirubin 0.3 mg/dL (0.2-1.3); Total Protein 6.8 g/dL (6.3-8.2)
[2018-02-09 00:12] LABS: Creatine Kinase 58 U/L (55-170)
[2018-02-09 00:26] LABS: Creatine Kinase MB 0.4 ng/mL (0.0-2.4); Troponin I <0.012 ng/mL (0.000-0.034)
--- NOTE | 2018-02-09 01:51 | ED ---
Chest Pain HPI - General Source: patient Mode of arrival: wheelchair Limitations: physical limitation <Marily Roman - Last Filed: 02/09/18 03:26> <Susan Clement - Last Filed: 02/09/18 06:15> - General Chief Complaint: Chest Pain Stated Complaint: Burning sensation in chest Time Seen by Provider: 02/08/18 23:06 - History of Present Illness Initial Comments: 42-year-old male patient with past medical history significant for myocardial infarction with stenting, presents to the emergency department today for evaluation of left upper chest pain and headache. Patient states he was working when he started having a burning pain to the left upper chest just below his left clavicle. Patient states he is also having a pounding headache behind his right eye. 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 Patient states that currently all symptoms have resolved. Patient states that he had a similar type pain however more severe when he had his heart attack so he became concerned and presented here for further evaluation. Patient denies any sweats , shortness of breath, or nausea with this. Denies any fevers or chills. Denies any cough or congestion. Patient denies any recent rash, fever, chills, abdominal pain, nausea, vomiting, diarrhea, constipation, back pain, numbness, tingling, dizziness, weakness, hematuria, dysuria, urinary urgency, urinary frequency, headache, visual changes, or any other complaints. Patient admits to current tobacco use. (Marily Roman) - Related Data Previous Rx's Medication Instructions Recorded Aspirin 81 mg PO DAILY #30 01/16/17 Atorvastatin [Lipitor] 80 mg PO HS #30 tab 01/16/17 Lisinopril [Zestril] 10 mg PO DAILY #30 tab 01/16/17 Metoprolol Tartrate [Lopressor] 25 mg PO BID #60 tab 01/16/17 Nitroglycerin Sl Tabs [Nitrostat] 0.4 mg SUBLINGUAL Q5M PRN #25 tab 01/16/17 Pantoprazole [Protonix] 40 mg PO AC-BRKFST #30 tab 01/16/17 Ticagrelor [Brilinta] 90 mg PO BID #60 tab 01/16/17 Allergies Allergy/AdvReac Type Severity Reaction Status Date / Time No Known Allergies Allergy Verified 02/08/18 23:21 Review of Systems ROS Other: All systems not noted in ROS Statement are negative. <Marily Roman - Last Filed: 02/09/18 03:26> ROS Other: All systems not noted in ROS Statement are negative. <ClementSusan P - Last Filed: 02/09/18 06:15> ROS Statement: Those systems with pertinent positive or pertinent negative responses have been documented in the HPI. EKG Findings - EKG Comments: EKG Findings:: EKG obtained at 2312 shows sinus rhythm with first-degree AV block, ventricular rate is 61, ID interval 210, QRS duration 94, QT 412, QTc 414. No evidence of ST elevation or depression. <Marily Roman - Last Filed: 02/09/18 03:26> Past Medical History Past Medical History: Myocardial Infarction ([place]), Sleep Apnea/CPAP/BIPAP History of Any Multi-Drug Resistant Organisms: None Reported Past Surgical History: Heart Catheterization With Stent Past Psychological History: No Psychological Hx Reported Smoking Status: Current every day smoker Past Alcohol Use History: Occasional Past Drug Use History: Marijuana <Marily Roman - Last Filed: 02/09/18 03:26> General Exam Limitations: physical limitation General appearance: alert, in no apparent distress, other (This is a well- developed, well-nourished adult male patient in no acute distress. Vital signs upon presentation are temperature 98.2F, pulse 56, respirations 18, blood pressure 168/86, pulse ox 98% on room air.) Eye exam: Present: normal appearance, PERRL, EOMI. Absent: scleral icterus, conjunctival injection, periorbital swelling ENT exam: Present: normal exam, normal oropharynx, mucous membranes moist Respiratory exam: Present: normal lung sounds bilaterally. Absent: respiratory distress, wheezes, rales, rhonchi, stridor, chest wall tenderness Cardiovascular Exam: Present: regular rate, normal rhythm, normal heart sounds. Absent: systolic murmur, diastolic murmur, rubs, gallop, clicks GI/Abdominal exam: Present: soft, normal bowel sounds. Absent: distended, tenderness, guarding, rebound, rigid Neurological exam: Present: alert, oriented X3, CN II-XII intact Psychiatric exam: Present: normal affect, normal mood Skin exam: Present: warm, dry, intact, normal color. Absent: rash <Marily Roman - Last Filed: 02/09/18 03:26> Vital Signs 02/08/18 02/09/18 23:00 02:13 Temperature 98.2 F 98.6 F Pulse Rate 56 L 66 Respiratory 18 16 Rate Blood Pressure 168/86 143/81 O2 Sat by Pulse 98 97 Oximetry Chest Pain MDM <Marily Roman - Last Filed: 02/09/18 03:26> <Susan Clement - Last Filed: 02/09/18 06:15> - [facility]: Two-view x-ray of the chest is obtained. Heart mediastinum are normal. Lungs are clear. Diaphragm is normal. Bony thorax appears normal. Impression by Dr. Walker shows normal chest with no change. MDM: 42-year-old male patient presents to the emergency department today for evaluation of burning discomfort to the left upper chest just believe the left clavicle. Patient is also beginning of headache. Symptoms had resolved upon patient's arrival. Labs reviewed and are unremarkable. Troponin was negative. Chest x-ray showed no acute cardiopulmonary process. Patient denies any shortness of breath, nausea, or sweats with this. Discuss results and findings with the patient. Did discuss this could be related to musculoskeletal injury due to the demanding physical nature of his job. Given patient's history I did offer to admit patient for observation and cardiology evaluation of the morning. Patient reported that he would rather be discharged home to follow-up outpatient. He is instructed to follow-up as soon as possible with his volumetric weigher and primary care physician. Return parameters discussed in detail. He verbalizes understanding and agreed with this plan. (Marily Roman) I was available for consultation in the emergency department. The history and physical exam were done by the midlevel provider. I was consulted for this patient's care. I reviewed the case with the midlevel provider and based on their presentation of the patient, I agree with the assessment, medical decision making and plan of care as documented. (Susan Clement) Disposition Is patient prescribed a controlled substance at d/c from ED?: No Time of Disposition: 01:51 <Marily Roman - Last Filed: 02/09/18 03:26> <Susan Clement P - Last Filed: 02/09/18 06:15> Clinical Impression: Atypical chest pain Disposition: HOME SELF-CARE Condition: Good Instructions: Chest Pain (ED) Additional Instructions: Follow-up with her volumetric weigher for recheck as soon as possible. Return here immediately for any new, worsening, or concerning symptoms. Referrals: Yaritza Andrade MD [Primary Care Provider] - 1-2 days
[2018-02-09 02:16] VITALS: BP 143/81; PULSE 66; RESP 16; TEMP 98.6
== END 2018-02-09 02:19 | disposition home or self-care (01) ==
LOC: EC 22:51
DX: R07.89 Other chest pain (principal); R51 Headache; I25.2 Old myocardial infarction; G47.30 Sleep apnea, unspecified; Z99.89 Dependence on other enabling machines and devices; Z95.5 Presence of coronary angioplasty implant and graft; F17.200 Nicotine dependence, unspecified, uncomplicated
CPT/HCPCS: 36415; 71046; 80053; 82550; 82553; 83735; 84484; 85025; 85610; 85730; 93005; 99285

== ENCOUNTER → 2018-02-17 | Outpatient (CLI) | payer OTHER ==
--- NOTE | 2018-02-18 10:19 | EST ---
EXERCISE STRESS DATE OF SERVICE: 02/17/2018 AGE: 42 SEX: Male HT: 69 WT: 250 PROTOCOL: Hi STAGE: IV DURATION OF EXERCISE: 9 minutes 32 seconds HEART RATE REST: 75 BLOOD PRESSURE REST: 126/68 MAXIMUM HEART RATE ACHIEVED: 141 MAXIMUM BLOOD PRESSURE: 167/60 85% MPHR: 151 100% MPHR: 178 METS: 11.1 INDICATIONS: Chest pain. CLINICAL INFORMATION: A 42-year-old male patient with history of chest pain. This is an exercise stress test. CLINICAL INFORMATION: Baseline heart rate 75 beats per minute. Baseline blood pressure 126/68 mmHg. Baseline 12-lead ECG shows sinus rhythm with normal ST segments. Patient exercised on a Hi protocol for 9 minutes 32 seconds achieving a peak heart rate of 141 beats per minute. Normal blood pressure response to exercise. There was no ECG evidence for ischemia. No arrhythmias other than occasional PACs noted. IMPRESSION: Good exercise capacity. Normal heart rate and blood pressure response to exercise without any evidence for ischemia. MMODL / IJN: [id number] /
== END | disposition home or self-care (01) ==
LOC: RADNMMAIN 09:20
PROVIDERS: ATTEND Internal Medicine
DX: R07.9 Chest pain, unspecified (principal)
CPT/HCPCS: 93017

== ENCOUNTER 2019-04-27 05:37 | Emergency (ER) | payer OTHER ==
[2019-04-27] MEDS ORDERED: SODIUM CHLORIDE 0.9% 1,000 ML IV STA (05:52)
--- NOTE | 2019-04-27 05:58 | ED ---
Abdominal Pain HPI - General Chief Complaint: Abdominal Pain Stated Complaint: URQ/Back Pain Source: patient, family Mode of arrival: ambulatory Limitations: no limitations - History of Present Illness Initial Comments: Michael is a 44-year-old male who presents the ER today for evaluation of right- sided abdominal pain. Patient reports that yesterday evening he began having right sided abdominal pain, he attempted to eat little portions of dinner but really had no appetite. Pain kept him up throughout the night and this morning which prompted him come the ER for evaluation. Patient reports associated nausea but no vomiting no change in bowel or bladder habits no history of kidney stones. Patient states that the pain seems to be directly and center on the right side, not up under his ribs not down in the pelvis not radiating to the flank. Pain is worse with palpation or movement. - Related Data Previous Rx's Medication Instructions Recorded Aspirin 81 mg PO DAILY #30 01/16/17 Atorvastatin [Lipitor] 80 mg PO HS #30 tab 01/16/17 Lisinopril [Zestril] 10 mg PO DAILY #30 tab 01/16/17 Metoprolol Tartrate [Lopressor] 25 mg PO BID #60 tab 01/16/17 Nitroglycerin Sl Tabs [Nitrostat] 0.4 mg SUBLINGUAL Q5M PRN #25 tab 01/16/17 Pantoprazole [Protonix] 40 mg PO AC-BRKFST #30 tab 01/16/17 Ticagrelor [Brilinta] 90 mg PO BID #60 tab 01/16/17 Allergies Allergy/AdvReac Type Severity Reaction Status Date / Time No Known Allergies Allergy Verified 04/27/19 05:47 Review of Systems ROS Statement: Those systems with pertinent positive or pertinent negative responses have been documented in the HPI. ROS Other: All systems not noted in ROS Statement are negative. Past Medical History Past Medical History: Myocardial Infarction ([place]), Sleep Apnea/CPAP/BIPAP History of Any Multi-Drug Resistant Organisms: None Reported Past Surgical History: Heart Catheterization With Stent Past Psychological History: No Psychological Hx Reported Smoking Status: Current every day smoker Past Alcohol Use History: Occasional Past Drug Use History: Marijuana General Exam - General Exam Comments Initial Comments: Physical Exam GENERAL: Patient is well-developed and well-nourished. Patient is nontoxic and well-hydrated Appears uncomfortable HENT: Normocephalic, Atraumatic. EYES: PERRL, EOMI PULMONARY: Unlabored respirations. CARDIOVASCULAR: RRR Warm and well perfused extremities ABDOMEN: Obese, soft Tenderness to palpation of the right lower quadrant as well as right upper quadrant Negative Fried sign SKIN: No rashes or bruising : Deferred NEUROLOGIC: Alert and oriented Normal speech Normal gait MUSCULOSKELETAL: Moving all extremities with no apparent injury PSYCHIATRIC: No SI/HI Limitations: no limitations Course Vital Signs 04/27/19 04/27/19 05:43 07:58 Temperature 98.1 F 98.7 F Pulse Rate 64 60 Respiratory 20 18 Rate Blood Pressure 177/99 146/101 O2 Sat by Pulse 98 95 Oximetry Medical Decision Making - Medical Decision Making Was seen and evaluated, history is obtained from patient at bedside this is a previously healthy 44-year-old woman presenting with somewhat diffuse abdominal pain and intermittent but seems to be worsening Physical exam relatively unremarkable patient has some mild tenderness to deep palpation in the abdomen Labs and CT imaging were obtained Labs were unremarkable no leukocytosis no transaminitissignificant abnormalities noted Computed tomography scan with no acute findings upon reevaluation patient's resting comfortably feels reassured there are no acute findings's comfortable with plan for discharge home, supportive care outpatient management and return parameters if anything gets worse. All questions pertaining care were answered return parameters were discussed patient was discharged home in stable condition - Lab Data Result diagrams: 04/27/19 06:04 04/27/19 06:04 Lab Results 04/27/19 04/27/19 04/27/19 Range/Units 06:04 06:04 06:04 WBC 9.3 (3.8-10.6) k/uL RBC 4.36 (4.30-5.90) m/uL Hgb 14.0 (13.0-17.5) gm/dL Hct 40.9 (39.0-53.0) % MCV 93.8 (80.0-100.0) fL MCH 32.2 (25.0-35.0) pg MCHC 34.3 (31.0-37.0) g/dL RDW 12.5 (11.5-15.5) % Plt Count 296 (150-450) k/uL Neutrophils % 61 % Lymphocytes % 24 % Monocytes % 7 % Eosinophils % 4 % Basophils % 1 % Neutrophils # 5.6 (1.3-7.7) k/uL Lymphocytes # 2.3 (1.0-4.8) k/uL Monocytes # 0.6 (0-1.0) k/uL Eosinophils # 0.3 (0-0.7) k/uL Basophils # 0.1 (0-0.2) k/uL Sodium 140 (137-145) mmol/L Potassium 4.2 (3.5-5.1) mmol/L Chloride 107 (98-107) mmol/L Carbon Dioxide 27 (22-30) mmol/L Anion Gap 6 mmol/L BUN 13 (9-20) mg/dL Creatinine 1.00 (0.66-1.25) mg/dL Est GFR (CKD-EPI)AfAm >90 (>60 ml/min/1.73 sqM) Est GFR (CKD-EPI)NonAf >90 (>60 ml/min/1.73 sqM) Glucose 111 H (74-99) mg/dL Calcium 9.1 (8.4-10.2) mg/dL Total Bilirubin 0.5 (0.2-1.3) mg/dL AST 25 (17-59) U/L ALT 23 (4-49) U/L Alkaline Phosphatase 66 (38-126) U/L Total Protein 7.2 (6.3-8.2) g/dL Albumin 4.0 (3.5-5.0) g/dL Lipase 40 (23-300) U/L Urine Color Light Yellow Urine Appearance Clear (Clear) Urine pH 5.5 (5.0-8.0) Ur Specific [place] 1.012 (1.001-1.035) Urine Protein Negative (Negative) Urine Glucose (UA) Negative (Negative) Urine Ketones Negative (Negative) Urine Blood Negative (Negative) Urine Nitrite Negative (Negative) Urine Bilirubin Negative (Negative) Urine Urobilinogen <2.0 (<2.0) mg/dL Ur Leukocyte Esterase Negative (Negative) Disposition Clinical Impression: Abdominal pain Disposition: HOME SELF-CARE Condition: Stable Instructions (If sedation given, give patient instructions): Abdominal Pain (ED) Is patient prescribed a controlled substance at d/c from ED?: No Referrals: Yaritza Andrade MD [Primary Care Provider] - 1-2 days
[2019-04-27 06:26] LABS: Basophils # (A) 0.1 k/uL (0-0.2); Basophils % (A) 1 %; Eosinophils # (A) 0.3 k/uL (0-0.7); Eosinophils % (A) 4 %; HCT 40.9 % (39.0-53.0); Lymphocytes # (A) 2.3 k/uL (1.0-4.8); Lymphocytes % (A) 24 %; MCH 32.2 pg (25.0-35.0); MCHC 34.3 g/dL (31.0-37.0); MCV 93.8 fL (80.0-100.0); Mean Platelet Volume 8.3; Monocytes # (A) 0.6 k/uL (0-1.0); Monocytes % (A) 7 %; Neutrophils # (A) 5.6 k/uL (1.3-7.7); Neutrophils % (A) 61 %; Platelet Count 296 k/uL (150-450); RBC 4.36 m/uL (4.30-5.90); RDW 12.5 % (11.5-15.5); WBC 9.3 k/uL (3.8-10.6)
[2019-04-27 06:29] LABS: Appearance,Urine Clear (Clear); Bilirubin,Urine Negative (Negative); Blood,Urine Negative (Negative); Color,Urine Light Yellow; Glucose,Urine (UA) Negative (Negative); Ketones,Urine Negative (Negative); Leukocyte Esterase,Urine Negative (Negative); Nitrite,Urine Negative (Negative); PH, Urine 5.5 (5.0-8.0); Protein,Urine Negative (Negative); Specific Gravity,Urine 1.012 (1.001-1.035); Urobilinogen,Urine <2.0 mg/dL (<2.0)
[2019-04-27 06:48] LABS: ALT 23 U/L (4-49); AST 25 U/L (17-59); African American GFR (CKD) >90 (>60 ml/min/1.73 sqM); Alkaline Phosphatase 66 U/L (38-126); Anion Gap 6 mmol/L; Blood Urea Nitrogen 13 mg/dL (9-20); Calcium 9.1 mg/dL (8.4-10.2); Carbon Dioxide 27 mmol/L (22-30); Chloride 107 mmol/L (98-107); Glucose 111 mg/dL (74-99); Non-African American GFR(CKD) >90 (>60 ml/min/1.73 sqM); Potassium 4.2 mmol/L (3.5-5.1); Sodium 140 mmol/L (137-145); Total Bilirubin 0.5 mg/dL (0.2-1.3); Total Protein 7.2 g/dL (6.3-8.2)
--- NOTE | 2019-04-27 07:08 | CT ---
EXAM: CT Abdomen and Pelvis With Intravenous Contrast CLINICAL HISTORY: ITS.REASON CT Reason: abdominal pain, RLQ TECHNIQUE: Axial computed tomography images of the abdomen and pelvis with intravenous contrast. CTDI is 19 mGy and DLP is 634 mGy-cm. This CT exam was performed using one or more of the following dose reduction techniques: automated exposure control, adjustment of the mA and/or kV according to patient size, and/or use of iterative reconstruction technique. COMPARISON: No relevant prior studies available. FINDINGS: Lung bases: No mass. No consolidation. ABDOMEN: Liver: Enlarged with mild steatosis. Gallbladder and bile ducts: Unremarkable. Pancreas: Unremarkable. Spleen: Unremarkable. Adrenals: Unremarkable. Kidneys and ureters: No hydronephrosis. Stomach and bowel: No bowel obstruction. No bowel wall thickening. PELVIS: Appendix: No evidence of appendicitis. Bladder: Mild wall thickening Reproductive: Unremarkable. ABDOMEN and PELVIS: Intraperitoneal space: Unremarkable. Bones/joints: No acute fractures. Soft tissues: Unremarkable. Vasculature: No abdominal aortic aneurysm. Lymph nodes: No enlarged lymph nodes. IMPRESSION: 1. No evidence of appendicitis. 2. Hepatomegaly with mild steatosis. 3. Mild bladder wall thickening, correlate with cystitis.
[2019-04-27 08:00] VITALS: BP 146/101; PULSE 60; RESP 18; TEMP 98.7
== END 2019-04-27 08:45 | disposition home or self-care (01) ==
LOC: EC 05:37
DX: R10.84 Generalized abdominal pain (principal); R11.0 Nausea; I25.2 Old myocardial infarction; G47.30 Sleep apnea, unspecified; F17.200 Nicotine dependence, unspecified, uncomplicated; Z95.5 Presence of coronary angioplasty implant and graft; Z99.89 Dependence on other enabling machines and devices
CPT/HCPCS: 36415; 80053; 83690; 85025; 81003; 74177; 99284; 96360; 96361; Q9967

== ENCOUNTER → 2019-05-19 | Outpatient (CLI) | payer OTHER ==
--- NOTE | 2019-05-19 13:01 | US ---
EXAMINATION TYPE: US abdomen complete DATE OF EXAM: 05/19/2019 COMPARISON: NONE CLINICAL HISTORY: R10.11 Right upper quadrant pain. EXAM MEASUREMENTS: Liver Length: 17.2 cm Gallbladder Wall: 0.2 cm CBD: 0.4 cm Spleen: 9.2 cm Right Kidney: 10.7 x 5.8 x 4.5 cm Left Kidney: 10.7 x 5.0 x 5.0 cm Morbidly obese patient, technically difficult and very limited study. Pancreas: partially obscured by bowel gas, portions visualized wnl Liver: Increased attenuation, decreased visualization of vessels suggestive of fatty infiltrate. Thi s limits evaluation for hepatic masses. Upper limits of normal in size Gallbladder: wnl Evidence for sonographic Fried's sign: no CBD: wnl Spleen: wnl Right Kidney: No hydronephrosis or masses seen Left Kidney: No hydronephrosis or masses seen, inferior pole obscured by bowel gas, limited views Upper IVC: wnl Abd Aorta: Bifurcation obscured by overlying bowel gas IMPRESSION: 1. Sonographic findings most commonly related to hepatic steatosis. Correlate with liver function emmy ts. 2. Limited exam secondary to overlying bowel gas with obscuration of the majority the pancreas, obscu ration the bifurcation of the abdominal aorta, and obscuration of the majority of the left kidney. 3. No sonographic evidence of cholelithiasis nor acute cholecystitis.
== END | disposition home or self-care (01) ==
LOC: RADUSMAIN 08:41
PROVIDERS: ATTEND Student in an Organized Health Care Education/Training Program
DX: K76.0 Fatty (change of) liver, not elsewhere classified (principal); R14.3 Flatulence
CPT/HCPCS: 76700

== ENCOUNTER 2019-05-25 22:58 | Observation (INO) | payer OTHER ==
[2019-05-25] MEDS ORDERED: ASPIRIN 81 MG PO STA (23:28)
[2019-05-25 23:46] LABS: Basophils # (A) 0.1 k/uL (0-0.2); Basophils % (A) 1 %; Eosinophils # (A) 0.5 k/uL (0-0.7); Eosinophils % (A) 4 %; HCT 41.3 % (39.0-53.0); HGB 13.6 gm/dL (13.0-17.5); Lymphocytes # (A) 3.2 k/uL (1.0-4.8); Lymphocytes % (A) 24 %; MCH 31.1 pg (25.0-35.0); MCHC 32.8 g/dL (31.0-37.0); MCV 94.7 fL (80.0-100.0); Mean Platelet Volume 8.2; Monocytes # (A) 0.8 k/uL (0-1.0); Monocytes % (A) 6 %; Neutrophils # (A) 8.4 k/uL (1.3-7.7); Neutrophils % (A) 62 %; Platelet Count 226 k/uL (150-450); RBC 4.36 m/uL (4.30-5.90); RDW 12.4 % (11.5-15.5); WBC 13.6 k/uL (3.8-10.6)
--- NOTE | 2019-05-25 23:48 | XR ---
EXAMINATION TYPE: XR chest 2V DATE OF EXAM: 05/25/2019 COMPARISON: 02/08/2018 HISTORY: Chest pain TECHNIQUE: FINDINGS: Heart and mediastinum are normal. Lungs are clear. Diaphragm is normal. Bony thorax appears normal. There are chest leads. IMPRESSION: Normal chest. No change.
[2019-05-25 23:56] LABS: INR 0.9 (<1.2); Partial Thromboplastin Time 23.8 sec (22.0-30.0); Prothrombin Time 9.4 sec (9.0-12.0)
[2019-05-25 23:57] LABS: ALT 22 U/L (4-49); AST 28 U/L (17-59); African American GFR (CKD) >90 (>60 ml/min/1.73 sqM); Albumin 3.9 g/dL (3.5-5.0); Alkaline Phosphatase 63 U/L (38-126); Anion Gap 7 mmol/L; Blood Urea Nitrogen 17 mg/dL (9-20); Calcium 8.9 mg/dL (8.4-10.2); Carbon Dioxide 24 mmol/L (22-30); Chloride 109 mmol/L (98-107); Glucose 95 mg/dL (74-99); Magnesium 1.8 mg/dL (1.6-2.3); Non-African American GFR(CKD) 85 (>60 ml/min/1.73 sqM); Sodium 140 mmol/L (137-145); Total Bilirubin 0.4 mg/dL (0.2-1.3)
[2019-05-26 00:05] LABS: Potassium 4.4 mmol/L (3.5-5.1)
--- NOTE | 2019-05-26 00:06 | ED ---
Chest Pain HPI - General Chief Complaint: Chest Pain Stated Complaint: chest pain Time Seen by Provider: 05/25/19 23:17 Source: patient Mode of arrival: wheelchair Limitations: no limitations - History of Present Illness Initial Comments: Patient is a 44-year-old male presenting to the emergency Department with complaints of left-sided chest pain that has been intermittent for the past few hours. Patient states he was sleeping and this pain woke him up. He describes it as stabbing in nature and is located on the left side of his chest near his armpit. Patient has history of cardiac cath [address] Ortiz. Patient has not had regular follow-ups, secondary to not having insurance. He states this pain is lasting a little from one to 5 minutes. Currently in the ER, he is having no pain, no nausea. He denies any recent fever, chills, abdominal pain, nausea, vomiting. He has no other complaints at this time. Upon arrival to the ER, his vital signs are stable. - Related Data Previous Rx's Medication Instructions Recorded Aspirin 81 mg PO DAILY #30 01/16/17 Atorvastatin [Lipitor] 80 mg PO HS #30 tab 01/16/17 Lisinopril [Zestril] 10 mg PO DAILY #30 tab 01/16/17 Metoprolol Tartrate [Lopressor] 25 mg PO BID #60 tab 01/16/17 Nitroglycerin Sl Tabs [Nitrostat] 0.4 mg SUBLINGUAL Q5M PRN #25 tab 01/16/17 Pantoprazole [Protonix] 40 mg PO AC-BRKFST #30 tab 01/16/17 Ticagrelor [Brilinta] 90 mg PO BID #60 tab 01/16/17 Allergies Allergy/AdvReac Type Severity Reaction Status Date / Time No Known Allergies Allergy Verified 05/25/19 23:02 Review of Systems ROS Statement: Those systems with pertinent positive or pertinent negative responses have been documented in the HPI. ROS Other: All systems not noted in ROS Statement are negative. EKG Findings - EKG Comments: EKG Findings:: Ventricular rate 78, WV interval to 12, QTC 4:30. Sinus rhythm with first-degree AV block, moderate criteria for LVH. No acute ST segment changes. Similar to previous EKG on 02/08/2018. Past Medical History Past Medical History: Myocardial Infarction ([place]), Sleep Apnea/CPAP/BIPAP History of Any Multi-Drug Resistant Organisms: None Reported Past Surgical History: Heart Catheterization With Stent Past Psychological History: No Psychological Hx Reported Smoking Status: Current every day smoker Past Alcohol Use History: Occasional Past Drug Use History: Marijuana General Exam - General Exam Comments Initial Comments: GENERAL: Well-appearing, well-nourished and in no acute distress. HEAD: Atraumatic, normocephalic. EYES: Pupils equal round and reactive to light, extraocular movements intact, sclera anicteric, conjunctiva are normal. ENT: TMs normal, nares patent, oropharynx clear without exudates. Moist mucous membranes. NECK: Normal range of motion, supple without lymphadenopathy or JVD. LUNGS: Breath sounds clear to auscultation bilaterally and equal. No wheezes rales or rhonchi. HEART: Regular rate and rhythm without murmurs, rubs or gallops. ABDOMEN: Soft, nontender, normoactive bowel sounds. No guarding, no rebound. No masses appreciated. : Deferred EXTREMITIES: Normal range of motion, no pitting or edema. No clubbing or cyanosis. NEUROLOGICAL: Normal speech, normal gait. PSYCH: Normal mood, normal affect. SKIN: Warm, Dry, normal turgor, no rashes or lesions noted. Limitations: no limitations Course Vital Signs 05/25/19 05/26/19 23:00 00:38 Temperature 98.4 F Pulse Rate 88 74 Respiratory 20 18 Rate Blood Pressure 159/82 145/96 O2 Sat by Pulse 98 96 Oximetry Chest Pain [facility] Patient is a 44-year-old male presenting with chest pain woke him up approximately 2 hours prior to arrival. Patient has history of heart cath [address] Ortiz. Vital signs are stable today. Patient does not currently have chest pain the ER. EKG shows no acute changes. Lab workup today is normal, troponin is normal. Chest x-ray shows no acute abnormalities. Discussed these findings with the patient. Patient will be admitted observation for serial troponins, cardiac consult. He is in agreement with this plan of care. Case discussed with Dr. Mesa. Disposition Clinical Impression: Chest pain Disposition: ADMITTED IP TO THIS HOSP Condition: Stable Is patient prescribed a controlled substance at d/c from ED?: No Referrals: Yaritza Andrade MD [Primary Care Provider] - 1-2 days Decision Date: 05/26/19 Decision Time: 00:41
[2019-05-26] MEDS ORDERED: NITROGLYCERIN SL TABS 0.4 MG TAB SUBLINGUAL PRN (00:38)
[2019-05-26 07:02] VITALS: RESP 18
[2019-05-26] MEDS ORDERED: LISINOPRIL 20 MG TAB PO SCH (09:00)
[2019-05-26] MEDS ORDERED: METOPROLOL TARTRATE 25 MG TAB PO SCH (09:00)
[2019-05-26 09:23] LABS: Cholesterol 116 mg/dL (<200); HDL Cholesterol 26 mg/dL (40-60); LDL Cholesterol,Calculated 61 mg/dL (0-99); Triglycerides 146 mg/dL (<150)
[2019-05-26 11:45] VITALS: BP 133/87; PULSE 70; TEMP 98.5
--- NOTE | 2019-05-26 12:14 | ECHOS ---
STRESS ECHOCARDIOGRAM INDICATIONS: Chest pain. BASELINE HEART RATE: 69 BASELINE BLOOD PRESSURE: 141/62 MAXIMUM HEART RATE: 126. MAXIMUM BLOOD PRESSURE: 188/90 85% MPHR: 150 100% MPHR: 176 METS: 10.3 MAXIMUM STAGE REACHED: 4 TOTAL EXERCISE TIME: 9:10 CLINICAL INFORMATION: Patient was exercised for a total period of 9 minutes. The peak heart rate of 126 was achieved, which is equivalent to 72% of the predicted heart rate. Maximum blood pressure of 188/90 mmHg was noted. Resting EKG shows normal sinus rhythm with normal LA interval and QRS duration and normal ST-T waves. No ST-segment depression suggestive of ischemia is noted. Occasional PVCs are noted. The baseline echocardiographic images reveals a normal left ventricular chamber size with normal left ventricular systolic function in the immediate postexercise period. Normal increase in the wall thickness and contractility was noted. Occasional PVCs are noted. FINAL IMPRESSION: 1. This stress echocardiographic study is negative for stress-induced ischemia, however, only 72% of the age predicted heart rate was achieved. 2. Patient's exercise tolerance is normal. 3. Occasional premature ventricular contractions were noted. MMODL / IJN: [id number] /
[2019-05-26] MEDS ORDERED: LISINOPRIL 20 MG TAB PO STA (12:50)
--- NOTE | 2019-05-26 12:53 | P.CRDCN ---
History of Present Illness History of present illness: HISTORY OF PRESENTING ILLNESS This is a pleasant 44-year-old male past medical history significant for coronary artery disease in the setting of an acute myocardial infarction status post PCI, hypertension, dyslipidemia, chronic shoulder pain and chronic nicotine dependence. He follows in the office with Dr. Ortiz. He has not been to the office in 2017. We have been asked to see in consultation for chest pain. States he woke up acutely last night with a sharp pain in the left shoulder that radiated down into the left precordial region at times associated with some numbness in the left arm and hand. There is no radiation to the back, neck or jaw. He denies any associated shortness of breath, dizziness, nausea, vomiting or palpitations. On arrival he was given aspirin and his symptoms slowly started to subside over the next hour or so. He is seen and examined re sting comfortably in bed in no acute distress. He has no further symptoms of chest discomfort. Cardiac catheterization performed in 2017 revealed a 95% stenosis of the mid LAD. He underwent successful stent placement at that time. He was maintained on dual antiplatelet therapy initially with Brilinta and then changed to Plavix. Currently he is taking aspirin and Plavix. DIAGNOSTICS EKG reveals sinus mechanism with first-degree AV block, no acute ST or T-wave abnormalities. Chest xray negative for an acute cardiopulmonary process. Laboratory reviewed, WBC 13.6, hemoglobin 13.6, platelets 226, sodium 140, potassium 4.4, creatinine 1.07, magnesium 1.8, cardiac enzymes negative 2, LDL 61. Current cardiac medications include aspirin 81 mg daily, Plavix 75 mg daily, atorvastatin 20 mg daily, lisinopril 20 mg daily and Lopressor 25 mg twice a day. Most recent echocardiogram obtained in the setting of a myocardial infarction in 2017 reveals preserved LV systolic function with ejection fraction 50-55%, mild MR and mild TR. Most recent stress test performed as an outpatient 2018 was negative for stress- induced ischemia. REVIEW OF SYSTEMS At the time of my exam: CONSTITUTIONAL: Denies fever or chills. CARDIOVASCULAR: Denies chest pain, shortness of breath, orthopnea, PND or palpitations. RESPIRATORY: Denies cough. GASTROINTESTINAL: Denies abdominal pain, diarrhea, constipation, nausea or vomiting. MUSCULOSKELETAL: Denies myalgias. NEUROLOGIC: Denies numbness, tingling or weakness. ENDOCRINE: Denies fatigue, weight change, polydipsia or polyurina. GENITOURINARY: Denies burning, hematuria or urgency with micturation. HEMATOLOGIC: Denies history of anemia or bleeding. PHYSICAL EXAMINATION Blood pressure 147/90 heart rate 63 afebrile and maintaining oxygen saturation on room air. CONSTITUTIONAL: No apparent distress. HEENT: Head is normocephalic. Pupils are equal, round. Sclerae anicteric. Mucous membranes of the mouth are moist. No JVD. No carotid bruit. CHEST EXAMINATION: Lungs are clear to auscultation. No chest wall tenderness is noted on palpation or with deep breathing. HEART EXAMINATION: Regular rate and rhythm. S1, S2 heard. No murmurs, gallops or rub. ABDOMEN: Soft, nontender. Positive bowel sounds. EXTREMITIES: 2+ peripheral pulses, no lower extremity edema and no calf tenderness. NEUROLOGIC EXAMINATION: Patient is awake, alert and oriented x3. ASSESSMENT Chest pain, atypical for angina. An acute coronary event has been ruled out. History of coronary artery disease status post PCI in the setting of an acute myocardial infarction Hypertension Dyslipidemia Chronic nicotine dependence Morbid obesity, BMI 41 PLAN An acute coronary event has been ruled out. Obtain 2-D echocardiogram and Doppler study to assess cardiac structure and function. Perform stress echocardiogram to assess for stress-induced cardiac ischemia. Increase lisinopril to 40 mg daily. Discontinue Plavix. Smoking cessation recommended. If stress test is normal he is stable for discharge from a cardiac perspective. Thank you kindly for this consultation. Nurse Practitioner note has been reviewed, I agree with a documented findings and plan of care. Patient was seen and examined. Past Medical History Past Medical History: Myocardial Infarction ([place]), Sleep Apnea/CPAP/BIPAP History of Any Multi-Drug Resistant Organisms: None Reported Past Surgical History: Heart Catheterization With Stent Past Psychological History: No Psychological Hx Reported Smoking Status: Current every day smoker Past Alcohol Use History: Occasional Past Drug Use History: Marijuana - Past Family History Mother Family Medical History: Diabetes Mellitus Father Family Medical History: No Reported History Additional Family Medical History / Comment(s): Father is healthy Medications and Allergies Home Medications Medication Instructions Recorded Confirmed Type Aspirin 81 mg PO DAILY #30 01/16/17 05/26/19 Rx Metoprolol Tartrate [Lopressor] 25 mg PO BID #60 tab 01/16/17 05/26/19 Rx Nitroglycerin Sl Tabs [Nitrostat] 0.4 mg SUBLINGUAL Q5M PRN #25 tab 01/16/17 05/26/19 Rx Pantoprazole [Protonix] 40 mg PO AC-BRKFST #30 tab 01/16/17 05/26/19 Rx Atorvastatin [Lipitor] 20 mg PO HS 05/26/19 05/26/19 History Clopidogrel [Plavix] 75 mg PO DAILY 05/26/19 05/26/19 History Diclofenac Sodium [Voltaren] 75 mg PO BID PRN 05/26/19 05/26/19 History Ibuprofen [Motrin] 800 mg PO Q8H PRN 05/26/19 05/26/19 History Lisinopril [Zestril] 20 mg PO DAILY 05/26/19 05/26/19 History tiZANidine [Zanaflex] 4 mg PO HS 05/26/19 05/26/19 History Allergies Allergy/AdvReac Type Severity Reaction Status Date / Time No Known Allergies Allergy Verified 05/26/19 06:55 Physical Exam Vitals: Vital Signs Temp Pulse Pulse Resp BP BP Pulse Ox 05/26/19 08:00 98.2 F 63 18 147/90 98 05/26/19 07:31 98.4 F 64 18 151/93 97 05/26/19 07:01 64 18 151/93 97 05/26/19 01:18 79 16 133/84 97 05/26/19 00:38 74 18 145/96 96 05/25/19 23:00 98.4 F 88 20 159/82 98 Intake and Output 05/25/19 05/26/19 05/26/19 22:59 06:59 14:59 Other: Weight 126.779 kg Results 05/25/19 23:35 05/25/19 23:35 Cardiac Enzymes 05/25/19 05/25/19 05/26/19 Range/Units 23:35 23:35 05:54 AST 28 (17-59) U/L Troponin I <0.012 <0.012 (0.000-0.034) ng/mL Coagulation 05/25/19 Range/Units 23:35 PT 9.4 (9.0-12.0) sec APTT 23.8 (22.0-30.0) sec CBC 05/25/19 Range/Units 23:35 WBC 13.6 H (3.8-10.6) k/uL RBC 4.36 (4.30-5.90) m/uL Hgb 13.6 (13.0-17.5) gm/dL Hct 41.3 (39.0-53.0) % Plt Count 226 (150-450) k/uL Comprehensive Metabolic Panel 05/25/19 Range/Units 23:35 Sodium 140 (137-145) mmol/L Potassium 4.4 (3.5-5.1) mmol/L Chloride 109 H (98-107) mmol/L Carbon Dioxide 24 (22-30) mmol/L BUN 17 (9-20) mg/dL Creatinine 1.07 (0.66-1.25) mg/dL Glucose 95 (74-99) mg/dL Calcium 8.9 (8.4-10.2) mg/dL AST 28 (17-59) U/L ALT 22 (4-49) U/L Alkaline Phosphatase 63 (38-126) U/L Total Protein 7.0 (6.3-8.2) g/dL Albumin 3.9 (3.5-5.0) g/dL Current Medications Generic Name Dose Route Start Last Admin Trade Name Freq PRN Reason Stop Dose Admin Aspirin 325 mg 05/27/19 09:00 Aspirin PO DAILY MARGIE Nitroglycerin 0.4 mg 05/26/19 00:38 Nitrostat SUBLINGUAL Q5M PRN Chest Pain Intake and Output 05/25/19 05/26/19 05/26/19 22:59 06:59 14:59 Other: Weight 126.779 kg 05/25/19 23:35 05/25/19 23:35
[2019-05-26] MEDS ORDERED: ATORVASTATIN 20 MG TAB PO SCH (21:00)
[2019-05-27] MEDS ORDERED: ASPIRIN 81 MG PO SCH (09:00)
[2019-05-27] MEDS ORDERED: LISINOPRIL 20 MG TAB PO SCH (09:00)
[2019-05-27] MEDS ORDERED: ASPIRIN 325 MG TAB PO SCH (09:00)
--- NOTE | 2019-05-28 13:59 | ECHOF ---
Referral Reason:cp MEASUREMENTS -------- HEIGHT: 175.3 cm WEIGHT: 126.6 kg BP: 147/90 IVSd: 1.4 cm (0.6 - 1.1) LVIDd: 5.6 cm (3.9 - 5.3) LVPWd: 1.1 cm (0.6 - 1.1) IVSs: 1.7 cm LVIDs: 3.3 cm LVPWs: 2.0 cm RVIDd: 3.3 cm (< 3.3) LAESV Index (A-L): 17.94 ml/m Ao Diam: 3.4 cm (2.0 - 3.7) LA Diam: 3.9 cm (2.7 - 3.8) AV Cusp: 2.1 cm (1.5 - 2.6) EPSS: 1.0 cm MV E Karsten: 1.26 m/s MV DecT: 294 ms MV A Karsten: 0.96 m/s MV E/A Ratio: 1.31 AV maxP.18 mmHg AV meanP.91 mmHg AR PHT: 217 ms RAP: 5.00 mmHg RVSP: 15.17 mmHg MV EF SLOPE: 67.89 mm/s (70 - 150) MV EXCURSION: 12.84 mm (> 18.000) FINDINGS -------- Sinus rhythm. This was a technically good study. The left ventricular size is normal. There is moderate concentric left ventricular hypertrophy. O verall left ventricular systolic function is normal with, an EF between 55 - 60 %. The right ventricle is mildly enlarged. The left atrial size is normal. The right atrial size is normal. Aortic valve is trileaflet and is mildly thickened. Trace amount of aortic regurgitation. Peak/m katia gradient across the Aortic Valve is 15.18mmHg / 8.91mmHg. The mitral valve is normal. The mitral valve leaflets are mildly thickened. Mild mitral regurgita tion is present. The tricuspid valve appears structurally normal. Mild tricuspid regurgitation present. Right vent ricular systolic pressure is normal at < 35 mmHg. There is no pulmonic regurgitation present. The aortic root size is normal. IVC Not well visulized. There is no pericardial effusion. CONCLUSIONS -------- 1. Sinus rhythm. 2. This was a technically good study. 3. The left ventricular size is normal. 4. There is moderate concentric left ventricular hypertrophy. 5. Overall left ventricular systolic function is normal with, an EF between 55 - 60 %. 6. The right ventricle is mildly enlarged. 7. The left atrial size is normal. 8. The right atrial size is normal. 9. Aortic valve is trileaflet and is mildly thickened. 10. Trace amount of aortic regurgitation. 11. Peak/mean gradient across the Aortic Valve is 15.18mmHg / 8.91mmHg. 12. The mitral valve is normal. 13. The mitral valve leaflets are mildly thickened. 14. Mild mitral regurgitation is present. 15. The tricuspid valve appears structurally normal. 16. Mild tricuspid regurgitation present. 17. Right ventricular systolic pressure is normal at < 35 mmHg. 18. There is no pulmonic regurgitation present. 19. The aortic root size is normal. 20. IVC Not well visulized. 21. There is no pericardial effusion. SPECIMEN TECHNICIAN: Kyra Meraz RDCS
--- NOTE | 2019-06-09 10:09 | P.HPIM ---
History of Present Illness H&P Date: 05/26/19 Chief Complaint: Chest pain 44-year-old male presenting to the emergency Department with complaints of left- sided chest pain that has been intermittent for the past few hours. Patient states he was sleeping and this pain woke him up. He describes it as stabbing in nature and is located on the left side of his chest near his armpit. Patient has history of cardiac cath [address] Ortiz. Patient has not had regular follow-ups, secondary to not having insurance. He states this pain is lasting a little from one to 5 minutes. EKG reveals sinus mechanism with first-degree AV block, no acute ST or T-wave abnormalities. Chest xray negative for an acute cardiopulmonary process. Laboratory reviewed, WBC 13.6, hemoglobin 13.6, platelets 226, sodium 140, potassium 4.4, creatinine 1.07, magnesium 1.8, cardiac enzymes negative 2, LDL 61. Review of Systems REVIEW OF SYSTEMS: CONSTITUTIONAL: No fever, no malaise, no fatigue. HEENT: No recent visual problems or hearing problems. Denied any sore throat. CARDIOVASCULAR: No chest pain, orthopnea, PND, no palpitations, no syncope. PULMONARY: No shortness of breath, no cough, no hemoptysis. GASTROINTESTINAL: No diarrhea, no nausea, no vomiting, no abdominal pain. NEUROLOGICAL: No headaches, no weakness, no numbness. HEMATOLOGICAL: Denies any bleeding or petechiae. GENITOURINARY: Denies any burning micturition, frequency, or urgency. MUSCULOSKELETAL/RHEUMATOLOGICAL: Denies any joint pain, swelling, or any muscle pain. ENDOCRINE: Denies any polyuria or polydipsia. The rest of the 14-point review of systems is negative. Past Medical History Past Medical History: Coronary Artery Disease (CAD), Hyperlipidemia, Hypertension, Myocardial Infarction ([place]), Sleep Apnea/CPAP/BIPAP Additional Past Medical History / Comment(s): JOE with Cpap, insomnia Last Myocardial Infarction Date:: 01/15/17 History of Any Multi-Drug Resistant Organisms: None Reported Past Surgical History: Heart Catheterization With Stent Past Anesthesia/Blood Transfusion Reactions: No Reported Reaction Additional Past Anesthesia/Blood Transfusion Reaction / Comment(s): Pt has never had general or spinal anesthesia. Date of Last Stent Placement:: 01/15/17 Smoking Status: Current every day smoker - Past Family History Mother Family Medical History: Diabetes Mellitus Father Family Medical History: No Reported History Additional Family Medical History / Comment(s): Father is healthy Medications and Allergies Home Medications Medication Instructions Recorded Confirmed Type Aspirin 81 mg PO DAILY #30 01/16/17 05/26/19 Rx Metoprolol Tartrate [Lopressor] 25 mg PO BID #60 tab 01/16/17 05/26/19 Rx Nitroglycerin Sl Tabs [Nitrostat] 0.4 mg SUBLINGUAL Q5M PRN #25 tab 01/16/17 05/26/19 Rx Pantoprazole [Protonix] 40 mg PO AC-BRKFST #30 tab 01/16/17 05/26/19 Rx Atorvastatin [Lipitor] 20 mg PO HS 05/26/19 05/26/19 History Diclofenac Sodium [Voltaren] 75 mg PO BID PRN 05/26/19 05/26/19 History Ibuprofen [Motrin] 800 mg PO Q8H PRN 05/26/19 05/26/19 History Lisinopril [Zestril] 40 mg PO DAILY #30 tab 05/26/19 Rx tiZANidine [Zanaflex] 4 mg PO HS 05/26/19 05/26/19 History Allergies Allergy/AdvReac Type Severity Reaction Status Date / Time No Known Allergies Allergy Verified 05/26/19 06:55 Physical Exam Vitals: Vital Signs Temp Pulse Pulse Resp BP BP Pulse Ox 05/26/19 08:00 98.2 F 63 18 147/90 98 05/26/19 07:31 98.4 F 64 18 151/93 97 05/26/19 07:01 64 18 151/93 97 05/26/19 01:18 79 16 133/84 97 05/26/19 00:38 74 18 145/96 96 05/25/19 23:00 98.4 F 88 20 159/82 98 Intake and Output 05/25/19 05/26/19 05/26/19 22:59 06:59 14:59 Other: Voiding Method Toilet Weight 126.779 kg 126.779 kg PHYSICAL EXAMINATION: GENERAL: The patient is alert and oriented x3, not in any acute distress. Well developed, well nourished. HEENT: Pupils are round and equally reacting to light. EOMI. No scleral icterus. No conjunctival pallor. Normocephalic, atraumatic. No pharyngeal erythema. No thyromegaly. CARDIOVASCULAR: S1 and S2 present. No murmurs, rubs, or gallops. PULMONARY: Chest is clear to auscultation, no wheezing or crackles. ABDOMEN: Soft, nontender, nondistended, normoactive bowel sounds. No palpable organomegaly. MUSCULOSKELETAL: No joint swelling or deformity. EXTREMITIES: No cyanosis, clubbing, or pedal edema. NEUROLOGICAL: Gross neurological examination did not reveal any focal deficits. SKIN: No rashes. Results CBC & Chem 7: 05/25/19 23:35 05/25/19 23:35 Labs: Abnormal Lab Results - Last 24 Hours (Table) 05/25/19 05/25/19 05/26/19 Range/Units 23:35 23:35 05:54 WBC 13.6 H (3.8-10.6) k/uL Neutrophils # 8.4 H (1.3-7.7) k/uL Chloride 109 H (98-107) mmol/L HDL Cholesterol 26 L (40-60) mg/dL Thrombosis Risk Factor Assmnt - Choose All That Apply Any of the Below Risk Factors Present?: Yes Each Factor Represents 1 point: Age 41-60 years, Obesity (BMI >25) Other Risk Factors: No Other congenital or acquired thrombophilia - If yes, enter type in comment: No Thrombosis Risk Factor Assessment Total Risk Factor Score: 2 Thrombosis Risk Factor Assessment Level: Low Risk Assessment and Plan Assessment: 1. Chest pain, atypical for angina. An acute coronary event has been ruled out. 2. History of coronary artery disease status post PCI in the setting of an acute myocardial infarction 3. Hypertension 4. Dyslipidemia 5. Chronic nicotine dependence 6. Morbid obesity, BMI 41 7. DVT prophylaxis; SCDs/subcu heparin CODE STATUS; full code PLAN An acute coronary event has been ruled out. Obtain 2-D echocardiogram and Doppler study to assess cardiac structure and function. Perform stress echocardiogram to assess for stress-induced cardiac ischemia. Increase lisinopril to 40 mg daily. Discontinue Plavix. Smoking cessation recommended. If stress test is normal he is stable for discharge from a cardiac perspective. Thank you kindly for this consultation.
--- NOTE | 2019-06-09 10:11 | P.DS ---
Providers Date of admission: 05/26/19 00:49 Expected date of discharge: 05/26/19 Attending physician: Marvin Arroyo MD Consults: 05/26/19 00:38 Consult Physician Urgent Consulting Provider: Bryce Berrios Consult Reason/Comments: chest pain Do you want consulting provider notified?: Yes, Notify in am Primary care physician: Lupe Hoskins [facility] Course: 44-year-old male past medical history significant for coronary artery disease in the setting of an acute myocardial infarction status post PCI, hypertension, dyslipidemia, chronic shoulder pain and chronic nicotine dependence. He follows in the office with Dr. Ortiz. He has not been to the office in 2017. We have been asked to see in consultation for chest pain. States he woke up acutely last night with a sharp pain in the left shoulder that radiated down into the left precordial region at times associated with some numbness in the left arm and hand. There is no radiation to the back, neck or jaw. He denies any associated shortness of breath, dizziness, nausea, vomiting or palpitations. On arrival he was given aspirin and his symptoms slowly started to subside over the next hour or so. He is seen and examined resting comfortably in bed in no acute distress. He has no further symptoms of chest discomfort. Cardiac catheterization performed in 2017 revealed a 95% stenosis of the mid LAD. He underwent successful stent placement at that time. He was maintained on dual antiplatelet therapy initially with Brilinta and then changed to Plavix. Currently he is taking aspirin and Plavix. Troponins remain negative; cardiology was consulted and patient was recommended to have 2-D echocardiogram with Doppler along with stress echocardiogram; lisinopril dose was increased to 40 mg daily; Plavix was discontinued and patient was recommended smoking cessation; cardiology cleared patient for discharge once stress test was negative; patient had a normal stress test and was sent home in a stable condition to follow-up with primary painting machine operator Patient Condition at Discharge: Stable Plan - Discharge Summary Discharge Rx Participant: No New Discharge Prescriptions: New Lisinopril [Zestril] 40 mg PO DAILY #30 tab Continue Aspirin 81 mg PO DAILY #30 Metoprolol Tartrate [Lopressor] 25 mg PO BID #60 tab Nitroglycerin Sl Tabs [Nitrostat] 0.4 mg SUBLINGUAL Q5M PRN #25 tab PRN Reason: Chest Pain Pantoprazole [Protonix] 40 mg PO AC-BRKFST #30 tab Ibuprofen [Motrin] 800 mg PO Q8H PRN PRN Reason: Pain Diclofenac Sodium [Voltaren] 75 mg PO BID PRN PRN Reason: Pain Atorvastatin [Lipitor] 20 mg PO HS tiZANidine [Zanaflex] 4 mg PO HS Discontinued Ticagrelor [Brilinta] 90 mg PO BID #60 tab Lisinopril [Zestril] 20 mg PO DAILY Clopidogrel [Plavix] 75 mg PO DAILY Discharge Medication List Aspirin 81 mg PO DAILY #30 01/16/17 [Rx] Metoprolol Tartrate [Lopressor] 25 mg PO BID #60 tab 01/16/17 [Rx] Nitroglycerin Sl Tabs [Nitrostat] 0.4 mg SUBLINGUAL Q5M PRN #25 tab 01/16/17 [Rx] Pantoprazole [Protonix] 40 mg PO AC-BRKFST #30 tab 01/16/17 [Rx] Atorvastatin [Lipitor] 20 mg PO HS 05/26/19 [History] Diclofenac Sodium [Voltaren] 75 mg PO BID PRN 05/26/19 [History] Ibuprofen [Motrin] 800 mg PO Q8H PRN 05/26/19 [History] Lisinopril [Zestril] 40 mg PO DAILY #30 tab 05/26/19 [Rx] tiZANidine [Zanaflex] 4 mg PO HS 05/26/19 [History] Follow up Appointment(s)/Referral(s): Yaritza Andrade MD [Primary Care Provider] - 1-2 days Jr Ortiz MD [STAFF PHYSICIAN] - 2 Weeks (office will call patient to make appointment ) Patient Instructions/Handouts: Chest Pain (DC) Discharge Disposition: HOME SELF-CARE
== END 2019-05-26 14:58 | disposition home or self-care (01) ==
LOC: EC 22:58 → 1SOBS 05-26 00:49
PROVIDERS: ADMIT Internal Medicine; ATTEND Internal Medicine
DX: R07.89 Other chest pain (principal); F17.200 Nicotine dependence, unspecified, uncomplicated; I25.10 Atherosclerotic heart disease of native coronary artery without angina pectoris; G89.29 Other chronic pain; M25.519 Pain in unspecified shoulder; I10 Essential (primary) hypertension; I25.2 Old myocardial infarction; E78.5 Hyperlipidemia, unspecified; G47.30 Sleep apnea, unspecified; Z98.61 Coronary angioplasty status; I44.0 Atrioventricular block, first degree; E66.01 Morbid (severe) obesity due to excess calories; Z68.41 Body mass index [BMI] 40.0-44.9, adult; Z79.899 Other long term (current) drug therapy; Z79.82 Long term (current) use of aspirin; Z79.02 Long term (current) use of antithrombotics/antiplatelets; Z83.3 Family history of diabetes mellitus
CPT/HCPCS: 99285; 36415; 93005; 93306; 80061; 80053; 83735; 84484 ×2; 85025; 85610; 85730; 71046; G0378; C8930; Q9950; 93351

== ENCOUNTER → 2020-07-16 | Outpatient (CLI) | payer OTHER ==
--- NOTE | 2020-07-16 14:28 | XR ---
EXAMINATION TYPE: XR knee limited LT DATE OF EXAM: 07/16/2020 COMPARISON: None HISTORY: Pain TECHNIQUE: 2 view left knee FINDINGS: There is narrowing of the medial lateral compartment joint spaces. No significant joint eff usion is evident. Medial and lateral tibial plateau spurring and medial femoral condylar spurring is noted. IMPRESSION: 1. Mild degenerative changes left knee
== END ==
LOC: RADXRMAIN 09:30
PROVIDERS: ATTEND Internal Medicine
DX: M17.12 Unilateral primary osteoarthritis, left knee (principal)

== ENCOUNTER → 2020-07-27 | Outpatient (CLI) | payer OTHER ==
--- NOTE | 2020-07-27 12:34 | MR ---
EXAMINATION TYPE: MR knee LT wo con DATE OF EXAM: 07/27/2020 COMPARISON: None HISTORY: Lt knee pain TECHNIQUE: Multiplanar, multisequence images of the knee is performed without IV contrast. FINDINGS: MEDIAL MENISCUS: Myxoid degeneration posterior horn medial meniscus without definite tear at this rick e. Similar appearance anterior horn medial meniscus. LATERAL MENISCUS: Tear posterior horn lateral meniscus with what appears to be a bucket-handle compon ent. CRUCIATE LIGAMENTS: The anterior and posterior cruciate ligaments are intact and unremarkable. COLLATERAL LIGAMENTS: The medial collateral ligament and lateral collateral ligament complex are inta ct and unremarkable. EXTENSOR MECHANISM: Visualized quadriceps and patellar tendons are intact. EFFUSION: No significant suprapatellar joint effusion. POPLITEAL CYST: Baby Zepeda's cyst measuring 1 cm. TRICOMPARTMENT SPACES: Moderate narrowing medial tibiofemoral joint space. Associated spur formation. CARTILAGE: Intact BONE MARROW SIGNAL: No focal abnormal marrow signal is appreciated. OTHER: No additional significant abnormality is appreciated. IMPRESSION: 1. Findings felt to reflect bucket-handle tear posterior horn lateral meniscus.
== END | disposition home or self-care (01) ==
LOC: RADMRIMAIN 07:31
PROVIDERS: ATTEND Internal Medicine
DX: S83.282A Other tear of lateral meniscus, current injury, left knee, initial encounter (principal)

== ENCOUNTER 2020-10-03 06:53 | Day surgery (SDC) | payer OTHER ==
[2020-10-01 12:35] VITALS: BMI 42.0
[~2020-10-03 06:53] MED LIST: DEXAMETHASONE SOD PHOSPHATE 4 MG/ML 1 ML VIAL IV ONE; LACTATED RINGERS 1,000 ML IV SCH; ONDANSETRON 4 MG/2 ML VIAL IVP ONE; Pre Op ABX Message 1 EACH MISC MISCELLANE ONE
[2020-10-03] MEDS ORDERED: HYDROmorphone 0.5 MG/0.5 ML SYRINGE IVP PRN (07:00)
[2020-10-03] MEDS ORDERED: LIDOCAINE 1% (10MG/ML) FOR IV START INTRADERMA ONE (07:33)
[2020-10-03] MEDS ORDERED: MIDAZOLAM 2 MG/2 ML VIAL ONE (08:01)
[2020-10-03] MEDS ORDERED: PROPOFOL 10 MG/ML 20 ML VIAL IV ONE (08:01)
[2020-10-03] MEDS ORDERED: SODIUM CHLORIDE 0.9% 100 ML BAG ONE (08:01)
[2020-10-03] MEDS ORDERED: ceFAZolin 1,000 MG VIAL ONE (08:01)
[2020-10-03] MEDS ORDERED: CHLOROPROCAINE 3% 30 MG/ML 20 ML VIAL ONE (08:01)
[2020-10-03] MEDS ORDERED: KETOROLAC 15 MG/ML 1 ML VIAL ONE (08:01)
[2020-10-03 09:07] VITALS: TEMP 96.9
[2020-10-03 09:15] VITALS: RESP 16
[2020-10-03] MEDS ORDERED: HYDROcodone/APAP 5-325MG 1 EACH TAB ONE (09:47)
[2020-10-03] MEDS ORDERED: HYDROcodone/APAP 5-325MG 1 EACH TAB PO ONE (09:50)
--- NOTE | 2020-10-03 10:05 | OP ---
OPERATIVE REPORT DATE OF PROCEDURE: 10/03/2020. PREOP DIAGNOSIS: Left knee lateral meniscus tear. POSTOP DIAGNOSIS: 1. Left knee lateral meniscus tear. 2. Left knee medial meniscus tear. 3. Left knee thickened infrapatellar medial shelf plica. PROCEDURE PERFORMED: 1. Left knee arthroscopic partial lateral meniscectomy. 2. Left knee arthroscopic partial medial meniscectomy. 3. Left knee arthroscopic lysis of adhesions. SURGEON: Zoran Fried MD. ANESTHESIA: General endotracheal. ESTIMATED BLOOD LOSS: Minimal. TOURNIQUET: None. DRAINS: None. COMPLICATIONS: None apparent. DISPOSITION: Postanesthesia care unit. INDICATIONS: Michael is a 45-year-old male who had a twisting injury to his left knee. Physical examination and MRI are consistent with tearing of the lateral meniscus. I had a long discussion with him in regard to treatment options. At this point, he does wish to proceed with operative intervention. Risks were explained to the patient which include, but are not limited to risk of infection, nerve damage, bleeding, pain, and a small risk of deep vein thrombosis which could lead to fatal pulmonary embolism. The patient understands these risks and wishes to proceed with surgical procedure. Examination under anesthesia, range of motion right: Full, left full. Effusion: Right none, left mild. Arielle's: Right normal with a good end point, left normal with good end point. Pivot shift: Right grade 0, left grade 0. Posterior drawer: Right with good endpoint, left with good end point. Varus laxity: Right none, left none. Valgus laxity: Right none, left none. External rotation: Right normal, left normal. External rotation: Right normal, left normal. ARTHROSCOPIC FINDINGS: Suprapatellar pouch was normal. Medial gutter thickened medial shelf plica. Lateral gutter was normal. Patella grade 1 change. Trochlea grade 2 change. Central aspect of the trochlea. Patellar tracking is normal. Medial femoral condyle. Diffuse grade 2 change medial tibial plateau, grade 1 change medial meniscus. Degenerative tear of the posterior horn of the medial meniscus through the white-white zone. Lateral femoral condyle, normal chondral surfaces lateral tibial plateau grade 1 change lateral meniscus complex tear, posterior horn, midbody, lateral meniscus, anterior cruciate ligament normal. Posterior cruciate ligament, normal. Infrapatellar notch thickened infrapatellar plica. DESCRIPTION OF THE PROCEDURE: The patient identified in preoperative holding. The surgical site was marked by both the patient and myself. He was given 2 grams of Ancef IV for prophylactic purposes. He was then transferred to the operative suite. He was placed supine on the operative table. General anesthetic was then administered and dosed per the anesthesia department without apparent complication. Examination under anesthesia was then performed of both knees. The findings are noted above. The tourniquet was not placed. The patient's left lower extremity than prepped and draped in usual sterile fashion. Standard surgical pause undertaken to ensure that we were operating on the correct site and that appropriate preoperative antibiotics were given. All staff in the room were in agreement we proceeded. The knee was then insufflated 120 mL with sterile saline solution. This was done to gradually distend the joint. A standard inferolateral portal was then made. A 30- degree arthroscope was introduced into the suprapatellar pouch. The arthroscopic pump pressure was set to 60 mmHg and maintained at that level throughout the entire case. Next utilizing an 18-gauge spinal needle to topically localize the placement, the inferomedial port was made under direct visualization. Standard diagnostic arthroscopy of the knee was then performed. The findings are noted above. Attention first drawn to the infrapatellar notch. Very thickened infrapatellar and medial shelf plica. This was released with a biter and debrided back to stable tissue utilizing the synovial shaver. Hemostasis was achieved with the ArthroCare wand. Attention drawn to the lateral compartment. Degenerative macerated tear of the posterior horn and midbody of the lateral meniscus. This was through the white-white zone. This tear was deemed irreparable. This tear was then debrided with a combination of biters and a synovial shaver back to stable tissue. Approximately 75% of the posterior horn midbody lateral meniscus remained intact after debridement. The anterior and posterior root attachments were carefully inspected and found to be intact. Attention was drawn to the medial compartment. He had a degenerative tear through the white-white zone of the posterior horn of the medial meniscus. This tear was also deemed irreparable. The meniscus tear was then debrided with a combination of biters and a shaver back to stable tissue. Approximately 75% of the posterior horn of the medial meniscus remained intact after debridement. The anterior and posterior root attachments were carefully inspected and found to be intact. At this point time, no further work was deemed necessary. The knee was thoroughly irrigated and drained with an outflow cannula. The arthroscopic equipment was removed from the knee. The arthroscopic portals were then closed with 3-0 nylon interrupted suture. Sterile compressive dressing was then applied. All sponge and needle counts were deemed correct prior to closure. The patient tolerated the procedure without apparent complication. He was transferred to recovery room in stable condition. [employer] / BRANTN: [id number] /
[2020-10-03 10:08] VITALS: BP 143/83; PULSE 50
== END 2020-10-03 11:15 | disposition home or self-care (01) ==
LOC: OR 06:53
PROVIDERS: ATTEND Orthopaedic Surgery Sports Medicine
DX: S83.282A Other tear of lateral meniscus, current injury, left knee, initial encounter (principal); S83.242A Other tear of medial meniscus, current injury, left knee, initial encounter; X50.1XXA Overexertion from prolonged static or awkward postures, initial encounter; M67.52 Plica syndrome, left knee; I10 Essential (primary) hypertension; K21.9 Gastro-esophageal reflux disease without esophagitis; Z95.5 Presence of coronary angioplasty implant and graft; Z97.3 Presence of spectacles and contact lenses; Z98.890 Other specified postprocedural states; F17.210 Nicotine dependence, cigarettes, uncomplicated; Z83.3 Family history of diabetes mellitus; Z79.01 Long term (current) use of anticoagulants; Z79.82 Long term (current) use of aspirin; Z79.899 Other long term (current) drug therapy; I25.10 Atherosclerotic heart disease of native coronary artery without angina pectoris
CPT/HCPCS: 29880; J2400; J2250; J1100; J2405; J0690; J1885; J2704

== ENCOUNTER 2021-12-09 08:19 | Emergency (ER) | payer OTHER ==
[2021-12-09 08:23] VITALS: BP 149/85; PULSE 62; RESP 16; TEMP 98.1
[2021-12-09 08:59] LABS: Appearance,Urine Clear (Clear); Bilirubin,Urine Negative (Negative); Blood,Urine Negative (Negative); Color,Urine Yellow; Glucose,Urine (UA) Negative (Negative); Ketones,Urine Negative (Negative); Leukocyte Esterase,Urine Negative (Negative); Nitrite,Urine Negative (Negative); PH, Urine 5.5 (5.0-8.0); Protein,Urine Trace (Negative); Urobilinogen,Urine <2.0 mg/dL (<2.0)
[2021-12-09] MEDS ORDERED: CYCLOBENZAPRINE 10 MG TAB PO STA (09:03)
[2021-12-09] MEDS ORDERED: KETOROLAC 15 MG/ML 1 ML VIAL IVP STA (09:03)
[2021-12-09] MEDS ORDERED: KETOROLAC 15 MG/ML 1 ML VIAL IM STA (09:23)
--- NOTE | 2021-12-09 09:24 | XR ---
EXAMINATION TYPE: XR ribs RT w pa chest xray DATE OF EXAM: 12/09/2021 COMPARISON: NONE HISTORY: Pain TECHNIQUE: Single view of the chest 5 views of the ribs are submitted. FINDINGS: The lungs are clear. No Evidence for pneumothorax. No evidence for focal contusion. Medi astinal structures are midline. Evaluation of the ribs fails to demonstrate evidence for displaced r ib fracture or secondary sign of rib fracture. IMPRESSION: Negative study
--- NOTE | 2021-12-09 10:17 | ED ---
Back Pain HPI - General Chief Complaint: Back Pain/Injury Stated Complaint: back pain Time Seen by Provider: 12/09/21 08:30 Source: patient Limitations: no limitations - History of Present Illness Initial Comments: 6-year-old male presents to the emergency Department with right-sided back pain. States that it is paraspinal, tender to the touch without radiation. Pain is worse with movement and better with rest. He took some Motrin at home without improvement in his symptoms. Denies any injuries. No recent new physical activity. Denies history of chronic back pain. States that his pain has now affected's work and therefore he came in for evaluation. 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 He denies fevers. He admits to shortness of breath when the pain is present however is relieved the pain goes away. He does not have a primary care physician area and denies any changes in his bowel or bladder habits. No weakness in his legs. Pain does not radiate into the legs. No other alleviating, precipitating or modifying factors - Related Data Home Medications Medication Instructions Recorded Confirmed Atorvastatin [Lipitor] 20 mg PO HS 05/26/19 10/03/20 Ibuprofen [Motrin] 800 mg PO Q8H PRN 05/26/19 10/03/20 tiZANidine [Zanaflex] 4 mg PO HS PRN 05/26/19 10/03/20 Losartan Potassium [Cozaar] 100 mg PO DAILY 09/16/20 10/03/20 Pantoprazole [Protonix] 40 mg PO HS 09/16/20 10/03/20 Aspirin 81 mg PO DAILY 10/01/20 10/03/20 Metoprolol Tartrate [Lopressor] 50 mg PO BID 10/01/20 10/03/20 Previous Rx's Medication Instructions Recorded Nitroglycerin Sl Tabs [Nitrostat] 0.4 mg SUBLINGUAL Q5M PRN #25 tab 01/16/17 HYDROcodone/APAP 5-325MG [Immaculata 1 tab PO Q4HR PRN #18 tab 10/03/20 5-325] Cyclobenzaprine [Flexeril] 10 mg PO TID PRN #25 tab 12/09/21 Ibuprofen [Motrin] 600 mg PO Q8HR PRN #30 tab 12/09/21 Lidocaine 5% Patch [Lidoderm] 1 patch TOPICAL DAILY #25 patch 12/09/21 Allergies Allergy/AdvReac Type Severity Reaction Status Date / Time No Known Allergies Allergy Verified 12/09/21 08:23 Review of Systems ROS Statement: Those systems with pertinent positive or pertinent negative responses have been documented in the HPI. ROS Other: All systems not noted in ROS Statement are negative. Past Medical History Past Medical History: Coronary Artery Disease (CAD), Hyperlipidemia, Hypertension, Myocardial Infarction ([place]), Sleep Apnea/CPAP/BIPAP Additional Past Medical History / Comment(s): JOE with Cpap, insomnia Last Myocardial Infarction Date:: 01/15/17 History of Any Multi-Drug Resistant Organisms: None Reported Past Surgical History: Heart Catheterization With Stent Past Anesthesia/Blood Transfusion Reactions: No Reported Reaction Additional Past Anesthesia/Blood Transfusion Reaction / Comment(s): Pt has never had general or spinal anesthesia. Date of Last Stent Placement:: 01/15/17 Past Psychological History: No Psychological Hx Reported Smoking Status: Current every day smoker Past Alcohol Use History: Occasional Past Drug Use History: Marijuana - Past Family History Mother Family Medical History: No Reported History Father Family Medical History: No Reported History Additional Family Medical History / Comment(s): Father is healthy General Exam Limitations: no limitations General appearance: alert, in no apparent distress Head exam: Present: atraumatic, normocephalic, normal inspection Eye exam: Present: normal appearance, PERRL, EOMI. Absent: scleral icterus, conjunctival injection, periorbital swelling ENT exam: Present: normal exam, mucous membranes moist Neck exam: Present: normal inspection. Absent: tenderness, meningismus, lymphadenopathy Respiratory exam: Present: normal lung sounds bilaterally. Absent: respiratory distress, wheezes, rales, rhonchi, stridor Cardiovascular Exam: Present: regular rate, normal rhythm, normal heart sounds. Absent: systolic murmur, diastolic murmur, rubs, gallop, clicks GI/Abdominal exam: Present: soft, normal bowel sounds. Absent: distended, tenderness, guarding, rebound, rigid Extremities exam: Present: normal inspection, full ROM, normal capillary refill, other (5/5 muscle strength b/l le). Absent: tenderness, pedal edema, joint swelling, calf tenderness Back exam: Present: normal inspection, CVA tenderness (R) Neurological exam: Present: alert, oriented X3, CN II-XII intact Psychiatric exam: Present: normal affect, normal mood Skin exam: Present: warm, dry, intact, normal color. Absent: rash Course Vital Signs 12/09/21 08:20 Temperature 98.1 F Pulse Rate 62 Respiratory 16 Rate Blood Pressure 149/85 O2 Sat by Pulse 97 Oximetry Medical Decision Making - Medical Decision Making Upon arrival patient is placed into room 30. A thorough history and physical exam is performed. X-ray is performed as patient does report to some shortness of breath associated with this pain. X-ray is negative for findings. He was given a dose of Toradol and Flexeril the emergency room. Does have some improvement in his symptoms. Patient will be discharged home and is to follow- up with his primary care doctor. Does have an appointment to see Dr. Sheikh. He is to return for any new or worsening symptoms. Patient agreeable discharged home in stable condition - Lab Data Lab Results 12/09/21 Range/Units 08:48 Urine Color Yellow Urine Appearance Clear (Clear) Urine pH 5.5 (5.0-8.0) Ur Specific [place] 1.020 (1.001-1.035) Urine Protein Trace H (Negative) Urine Glucose (UA) Negative (Negative) Urine Ketones Negative (Negative) Urine Blood Negative (Negative) Urine Nitrite Negative (Negative) Urine Bilirubin Negative (Negative) Urine Urobilinogen <2.0 (<2.0) mg/dL Ur Leukocyte Esterase Negative (Negative) Disposition Clinical Impression: Back pain Disposition: HOME SELF-CARE Condition: Stable Instructions (If sedation given, give patient instructions): Acute Low Back Pain (ED) Additional Instructions: Please take the medications as directed and follow-up with the primary care doctor. If you have further symptoms you may need repeat evaluation. Prescriptions: Cyclobenzaprine [Flexeril] 10 mg PO TID PRN #25 tab PRN Reason: Muscle Spasm Lidocaine 5% Patch [Lidoderm] 1 patch TOPICAL DAILY #25 patch Ibuprofen [Motrin] 600 mg PO Q8HR PRN #30 tab PRN Reason: Pain Is patient prescribed a controlled substance at d/c from ED?: No Referrals: Dennys Sheikh MD [STAFF PHYSICIAN] - 1-2 days Time of Disposition: 10:17
== END 2021-12-09 10:31 | disposition home or self-care (01) ==
LOC: EC 08:19
DX: M54.9 Dorsalgia, unspecified (principal); I25.10 Atherosclerotic heart disease of native coronary artery without angina pectoris; E78.5 Hyperlipidemia, unspecified; I10 Essential (primary) hypertension; I25.2 Old myocardial infarction; F17.200 Nicotine dependence, unspecified, uncomplicated; F12.90 Cannabis use, unspecified, uncomplicated; Z79.82 Long term (current) use of aspirin; Z79.899 Other long term (current) drug therapy
CPT/HCPCS: 81003; 71101; 99285; 96372; J1885

== ENCOUNTER → 2022-05-27 | Outpatient (CLI) | payer OTHER ==
--- NOTE | 2022-05-27 19:51 | CT ---
EXAMINATION TYPE: CT soft tissue neck wo con CT DLP: 801.4 mGycm, Automated exposure control for dose reduction was used. DATE OF EXAM: 05/27/2022 4:51 PM COMPARISON: None. CLINICAL INDICATION:Male, 47 years old with history of R22.1 LOCALIZED SWELLING, MASS AND LUMP, NECK, LOCALIZED SWELLING, MASS AND LUMP, NECK TECHNIQUE: Standard enhanced CT of the neck. Axial sections with coronal and sagittal reformats were obtained. Palpable marker placed at the discretion of the patient. Contrast used: none. Oral contrast used: none. FINDINGS: Brain: Visualized portions are grossly unremarkable. Orbits: Unremarkable Sinuses: Grossly unremarkable. Spaces of the neck: Palpable marker on the left correlates with an enlarged soft tissue mass measurin g 23 x 30 mm felt to be situated just below the left parotid gland. There is an additional enlarged j ugulodigastric lymph node measuring up to 16 mm in short axis on the left. Musculoskeletal: No acute osseous pathology. Vascular structures: Visualized major arteries are patent without evidence of aneurysm. Thoracic Inlet/airway: Airway is patent. The lung apices are clear. Soft tissues/Thyroid: Thyroid and remainder of the soft tissues are unremarkable. Other: none. IMPRESSION Enlarged left lymph node which is situated just inferior to the left parotid gland. An additional pro minent jugulodigastric lymph node is also present on the left. Further workup with tissue sampling re commended.
== END | disposition home or self-care (01) ==
LOC: RADCTMAIN 16:35
PROVIDERS: ATTEND Family Medicine
DX: R22.1 Localized swelling, mass and lump, neck (principal)
CPT/HCPCS: 70490

== ENCOUNTER 2022-07-20 11:54 | Day surgery (SDC) | payer OTHER ==
[2022-07-20 13:05] VITALS: PULSE 66; RESP 18; TEMP 98.1
[2022-07-20 14:08] VITALS: BP 131/71
--- NOTE | 2022-07-20 15:22 | US ---
ULTRASOUND GUIDED CORE BIOPSY LEFT MASS: CLINICAL HISTORY: Left neck mass FINDINGS: The procedure was explained to the patient. The risks, complications, benefits and alternatives were discussed and any questions were answered. Informed consent was obtained. Patient was placed supin e on the ultrasound table and prepped and draped in the usual sterile fashion. Utilizing a 18 gauge core biopsy needle, 3 passes were made into the left neck mass. Patient was stable throughout the procedure. Pathology is pending. All elements of maximal barrier technique were utilized. IMPRESSION: 1. Successful ultrasound guided core biopsy left neck mass.
== END 2022-07-20 13:45 | disposition home or self-care (01) ==
LOC: RADPROMAIN 11:54
PROVIDERS: ATTEND Otolaryngology
DX: R22.1 Localized swelling, mass and lump, neck (principal)
CPT/HCPCS: 38505; 76942; 88305